=== PATIENT | female | born 1950 | race Caucasian/White ===

== ENCOUNTER 2021-12-23 15:16 | Emergency (ER) | payer MEDICARE, OTHER, SELFPAY ==
[2021-12-23 15:40] VITALS: BP 105/48; PULSE 65; RESP 14; TEMP 36.7; O2SAT 98
--- NOTE | 2021-12-23 16:37 | ED.GENADULT ---
HPI - General Adult General Date Seen: 12/23/21 Chief complaint: Extremity Pain/Injury, Lower Stated complaint: Toe Infection Time Seen by Provider: 12/23/21 15:28 Source: family History of Present Illness HPI narrative: Patient is a 71-year-old woman with significant dementia, here with her who provides history. He wanted to have her toes checked. He himself lives 5 hours away in [facility], he is visiting today. He says he has been hearing for the past couple of weeks about possible infection in her toes. He is just seeing it today, he is a little frustrated because he had asked staff at [facility] to have it evaluated and that has not happened yet. Patient herself is not able to provide any history. It has not seemed to bother her. There is a blackened area around her right great toenail, and a little less so around her left great toenail. She does have fungal infection in those toenails. There is no redness or swelling. She has not been febrile or otherwise ill. Related Data Home Medications Medication Instructions Recorded Confirmed acetaminophen 500 mg tablet mg 12/23/21 cyanocobalamin (vitamin B-12) 1,000 mcg PO DAILY 12/23/21 12/23/21 1,000 mcg tablet (Vitamin B-12) divalproex 125 mg capsule,delayed mg PO 12/23/21 release sprinkle (Depakote Sprinkles) hydrocodone 5 mg-acetaminophen 325 tab 12/23/21 mg tablet memantine 5 mg tablet mg 12/23/21 nystatin 100,000 unit/gram topical 1 applic TOPICAL PRN 12/23/21 12/23/21 powder (Nystop) quetiapine 50 mg tablet mg 12/23/21 sennosides 8.6 mg tablet (senna) mg 12/23/21 sertraline 50 mg tablet 50 mg PO DAILY 12/23/21 12/23/21 Allergies Allergy/AdvReac Type Severity Reaction Status Date / Time donepezil Allergy Mild Uncoded 12/23/21 16:26 Review of Systems Status of ROS: Reports: unobtainable due to medical condition (Dementia) [facility] Medical History Abnormal weight loss Anxiety Candidiasis Constipation Heartburn Insomnia Iron deficiency anemia Lewy body dementia Multiple sclerosis Urinary tract infection Social History Smoking Status: Never smoker How often do you have a drink containing alcohol: never AUDIT-C Alcohol total score: 0 Non-prescribed substance use: denies use Exam Narrative: Exam Narrative: Vital signs as below. In general, an alert, well-appearing elderly woman. Extremities: Examination of both feet shows significant uncle mycosis particularly in the great toenails. Under the right great toenail she has a subungual hematoma, where it appears that the toenail is starting to lift from the nail bed. This is probably starting to happen on the left as well although it is less dramatic. There is no evidence of bacterial infection, there is no redness, swelling or tenderness. No paronychium. Feet are otherwise normal in appearance. Pulses are intact. Neurologic: Patient is alert, speech is nonsensical but fluent. Moves all extremities. Const: Vital Signs, click to edit/add: Vital Signs - 24 hr 12/23/21 15:40 Temperature 98.1 F Pulse Rate [Pulse Oximeter] 65 Respiratory Rate 14 Blood Pressure [Le ft Upper Arm] 105/48 L Pulse Oximetry 98 Documenting provider has reviewed patient's vital signs: yes Course Course Hospital Course: Reviewed with her that I do not see any evidence of significant infection here aside from her uncle mycosis. She just has such significant fungal infection in the nails that they are starting to lift off the nail bed. I think she would do best to just leave this as is, I think the nails will continue to lift off of the nail bed and eventually will fall off. Did place a dressing on the right nail to protect it so that it does not tear off inadvertently. Also, I vast nursing staff to change this dressing daily, which will ensure that this is checked daily. Her is very concerned that they will not keep an eye on it, and this will help make sure that somebody is an eye on it. If there are any signs of overt infection that develop, such as redness, swelling, or if she seems to be having pain, she should be seen again. We talked about treatment for the onchomycosis, but he agrees that since this would be primarily cosmetic, that it probably is not indicated. Vital Signs Vital signs: Initial Vital Signs Temperature 98.1 F 12/23/21 15:40 Temperature Source Temporal Artery Scan 12/23/21 15:40 Pulse Rate 65 12/23/21 15:40 Respiratory Rate 14 12/23/21 15:40 Blood Pressure 105/48 L 12/23/21 15:40 Blood Pressure Mean 67 12/23/21 15:40 Blood Pressure Position Supine 12/23/21 15:40 Pulse Oximetry 98 12/23/21 15:40 Oxygen Delivery Method 12/23/21 15:40 Vital Signs Temperature 98.1 F 12/23/21 15:40 Pulse Rate 65 12/23/21 15:40 Respiratory Rate 14 12/23/21 15:40 Blood Pressure 105/48 L 12/23/21 15:40 Pulse Oximetry 98 12/23/21 15:40 Temperature 98.1 F 12/23/21 15:40 Pulse Rate 65 12/23/21 15:40 Respiratory Rate 14 12/23/21 15:40 Blood Pressure 105/48 L 12/23/21 15:40 Pulse Oximetry 98 12/23/21 15:40 Discharge Plan Discharge Clinical Impression: Onychomycosis Patient Disposition: [facility] Discharge Location: [facility] Living Condition: Stable Additional Instructions: Daily dressing changes on right great toe until nail falls off, then for about a week until nail that heals. Primary care or Podiatry follow-up as needed. Return if signs of infection develop such as redness, swelling, pain or fever. Prescriptions: No Action sennosides [senna] 8.6 mg tablet 0RF Label Comments: 1 tab po bid and 1 tab po bid prn constipation hydrocodone-acetaminophen 5-325 mg tablet 0RF Label Comments: TAKE ONE-HALF (1/2) TABLET BY MOUTH THREE TIMES DAILY;TAKE ONE-HALF (1/2) TABLET BY MOUTH EVERY 4 HOURS NEEDED FOR PAIN acetaminophen 500 mg tablet 0RF Label Comments: 1000 mg po BID divalproex [Depakote Sprinkles] 125 mg capsule, delayed rel sprinkle PO 0RF Label Comments: 250 mg po AM, 500 mg po noon, 250 mg po PM memantine 5 mg tablet 0RF Label Comments: Take 1 tablet by mouth once a day 5 mg po daily X 1 month, then DC. quetiapine 50 mg tablet 0RF Label Comments: 0.5 tab QAM, 1 tab midday and PM (3 doses daily 25-50-50 mg) AND Give 1 tablet (50mg) PRN daily for agitation nystatin [Nystop] 100,000 unit/gram powder 1 applic topical PRN 0RF sertraline 50 mg tablet 50 mg PO DAILY 0RF cyanocobalamin (vitamin B-12) [Vitamin B-12] 1,000 mcg tablet 1,000 mcg PO DAILY 0RF Stand Alone Forms: [employer] Info Instructions
== END 2021-12-23 17:01 | disposition home or self-care (01) ==
LOC: ED 16:38
PROVIDERS: Emergency Provider Emergency Medicine
DX: B35.1 Tinea unguium (principal); F03.90 Unspecified dementia, unspecified severity, without behavioral disturbance, psychotic disturbance, mood disturbance, and anxiety
CPT/HCPCS: 99282; 99283

== ENCOUNTER 2022-03-11 16:07 | Outpatient (CLI) | payer MEDICARE, OTHER, SELFPAY | END 2022-03-11 16:08 | disposition home or self-care (01) | PROVIDERS: Visit Provider Emergency Medicine | DX: S09.90XA Unspecified injury of head, initial encounter (principal); W01.0XXA Fall on same level from slipping, tripping and stumbling without subsequent striking against object, initial encounter; Y92.098 Other place in other non-institutional residence as the place of occurrence of the external cause | CPT/HCPCS: A0425; A0428; A0429 ==

== ENCOUNTER 2022-03-11 16:19 | Emergency (ER) | payer MEDICARE, OTHER, SELFPAY ==
[2022-03-11 16:26] VITALS: BP 132/67; PULSE 58; RESP 16; TEMP 36.5; O2SAT 97
--- NOTE | 2022-03-11 17:00 | CRLHL7_ITS ---
For Patients: As a result of the Century Cures Act, medical imaging exams and procedure reports are released immediately into your electronic medical record. You may view this report before your referring provider. If you have questions, please contact your health care provider. Indication: Fall Technique: Noncontrast head CT Comparison: No comparison Findings: Generalized parenchymal volume. Periventricular hypo lucencies likely reflecting chronic small vessel ischemic change no acute intracranial hemorrhage or mass. No acute extra-axial air fluid collections. No midline shift. Right frontal scalp hematoma. Skull and scalp otherwise appear unremarkable. Impression: No acute intracranial hemorrhage or mass. Right frontal scalp hematoma. Please note that all CT scans at this facility use dose modulation, iterative reconstruction, and/or weight-based dosing when appropriate to reduce radiation dose to as low as reasonably achievable. Dictated by Abbie Varela MD @ 03/11/2022 6:02:31 PM (Electronically Signed)
--- NOTE | 2022-03-11 17:02 | ED.FALL ---
HPI - Fall General Chief Complaint: Fall/Minor Trauma Stated Complaint: Fall Time Seen by Provider: 03/11/22 16:57 History of Present Illness HPI Narrative: This 71-year-old female is a resident in the memory care unit at [facility]. She was found down this morning with an unwitnessed apparent fall. There was no sign of injury. She again fell this afternoon. This 1 was witnessed. She did hit her head but did not have loss of consciousness. She is not on blood thinners. She does have a hematoma with bruising but no compromise of the skin in the area of her forehead just above the right eye brow. She does not have any neurologic deficits. Related Data Home Medications Medication Instructions Recorded Confirmed acetaminophen 500 mg tablet mg 12/23/21 cyanocobalamin (vitamin B-12) 1,000 mcg PO DAILY 12/23/21 03/11/22 1,000 mcg tablet (Vitamin B-12) divalproex 125 mg capsule,delayed mg PO 12/23/21 release sprinkle (Depakote Sprinkles) hydrocodone 5 mg-acetaminophen 325 tab 12/23/21 mg tablet memantine 5 mg tablet mg 12/23/21 nystatin 100,000 unit/gram topical 1 applic topical PRN 12/23/21 03/11/22 powder (Nystop) quetiapine 50 mg tablet mg 12/23/21 sennosides 8.6 mg tablet (senna) mg 12/23/21 sertraline 50 mg tablet 50 mg PO DAILY 12/23/21 03/11/22 melatonin PO 03/11/22 quetiapine 25 mg tablet mg 03/11/22 sennosides 8.6 mg capsule (senna) 8.6 mg PO BID 03/11/22 03/11/22 Allergies Allergy/AdvReac Type Severity Reaction Status Date / Time donepezil Allergy Mild Uncoded 12/23/21 16:26 Review of Systems Status of ROS: Reports: 10 or more systems reviewed and unremarkable except as noted in History and below Narrative: Unable to obtain due to dementia. [facility] Medical History Abnormal weight loss Anxiety Candidiasis Constipation Heartburn Insomnia Iron deficiency anemia Lewy body dementia Multiple sclerosis Urinary tract infection Social History Smoking Status: Never smoker How often do you have a drink containing alcohol: never AUDIT-C Alcohol total score: 0 Non-prescribed substance use: denies use Exam Narrative: Exam Narrative: Constitutional: Well-developed, well-nourished, no acute distress. HEENT: Hematoma above the right eyebrow about 4 cm in diameter with bruising but no skin compromise. Neck: Normal range of motion. Nontender. Supple. Heart: Regular. No murmurs. Normal rate. Intact distal pulses. Lungs: Clear to auscultation. No chest discomfort. No wheezes, rhonchi, or rales. Abdomen: Normal bowel sounds. Nontender. No rebound tenderness. Genitalia: Deferred. Back: No midline tenderness. Normal range of motion. Extremities: Normal range of motion. No injury. Skin: Intact. No rash. Warm. No erythema or pallor. Neurologic: No altered sensation. No weakness. Alert. Psychiatric: Dementia. Nursing notes and vitals signs are reviewed. Const: Vital Signs, click to edit/add: Vital Signs - 24 hr 03/11/22 16:26 Temperature 97.7 F Pulse Rate [Pulse Oximeter] 58 L Respiratory Rate 16 Blood Pressure [Ri ght Upper Arm] 132/67 Pulse Oximetry 97 Oxygen Delivery Me thod Room Air Course Vital Signs Vital signs: Initial Vital Signs Temperature 97.7 F 03/11/22 16:26 Temperature Source Temporal Artery Scan 03/11/22 16:26 Pulse Rate 58 L 03/11/22 16:26 Respiratory Rate 16 03/11/22 16:26 Blood Pressure 132/67 03/11/22 16:26 Blood Pressure Mean 88 03/11/22 16:26 Blood Pressure Position Supine 03/11/22 16:26 Pulse Oximetry 97 03/11/22 16:26 Oxygen Delivery Method 03/11/22 16:26 Vital Signs Temperature 97.7 F 03/11/22 16:26 Pulse Rate 58 L 03/11/22 16:26 Respiratory Rate 16 03/11/22 16:26 Blood Pressure 132/67 03/11/22 16:26 Pulse Oximetry 97 03/11/22 16:26 Oxygen Delivery Method 03/11/22 16:26 Temperature 97.7 F 03/11/22 16:26 Pulse Rate 58 L 03/11/22 16:26 Respiratory Rate 16 03/11/22 16:26 Blood Pressure 132/67 03/11/22 16:26 Pulse Oximetry 97 03/11/22 16:26 Oxygen Delivery Method 03/11/22 16:26 MDM - Fall MDM Narrative Medical decision making narrative: This patient comes in for evaluation of a fall that occurred at her memory care facility. This was a witnessed fall where she did not lose consciousness. She did hit her head and has a hematoma above her right eyebrow. CT imaging of the head by my review and according to radiology report shows no sign of intracranial injury. Patient is not exhibiting any signs of acute distress and is not showing any neurologic deficits. She is okay to return home to continue current plans. Imaging Data CT scan - head: Radiologist's impression: No acute intracranial hemorrhage or mass. Right frontal scalp hematoma. Discharge Plan Discharge Clinical Impression: Traumatic hematoma of forehead Patient Disposition: Home w/ Parent or Adult Condition: Stable Additional Instructions: Continue current plans. Follow up with MD or return if worsening. Prescriptions: No Action sennosides [senna] 8.6 mg tablet Label Comments: 1 tab po bid and 1 tab po bid prn constipation hydrocodone-acetaminophen 5-325 mg tablet Label Comments: TAKE ONE-HALF (1/2) TABLET BY MOUTH THREE TIMES DAILY;TAKE ONE-HALF (1/2) TABLET BY MOUTH EVERY 4 HOURS NEEDED FOR PAIN acetaminophen 500 mg tablet Label Comments: 1000 mg po BID divalproex [Depakote Sprinkles] 125 mg capsule, delayed rel sprinkle PO Label Comments: 250 mg po AM, 500 mg po noon, 250 mg po PM memantine 5 mg tablet Label Comments: Take 1 tablet by mouth once a day 5 mg po daily X 1 month, then DC. quetiapine 50 mg tablet Label Comments: 0.5 tab QAM, 1 tab midday and PM (3 doses daily 25-50-50 mg) AND Give 1 tablet (50mg) PRN daily for agitation nystatin [Nystop] 100,000 unit/gram powder 1 applic topical PRN sertraline 50 mg tablet 50 mg PO DAILY cyanocobalamin (vitamin B-12) [Vitamin B-12] 1,000 mcg tablet 1,000 mcg PO DAILY quetiapine 25 mg tablet Label Comments: TAKE 1 TABLET BY MOUTH EVERY MORNING melatonin PO senna 8.6 mg capsule 8.6 mg PO BID Follow Up/Referrals: Provider,Not a Local [Primary Care Provider] - Stand Alone Forms: [employer] Info Instructions
[2022-03-11] MEDS: LORazepam 2 MG/ML inj 0.5 MG IM (18:47)
== END 2022-03-11 19:26 | disposition home or self-care (01) ==
PROVIDERS: Emergency Provider Emergency Medicine Emergency Medical Services
DX: S00.83XA Contusion of other part of head, initial encounter (principal)
CPT/HCPCS: 70450; 99284; J2060

== ENCOUNTER 2022-03-11 18:48 | Outpatient (CLI) | payer MEDICARE, OTHER, SELFPAY | END 2022-03-11 18:49 | disposition home or self-care (01) | PROVIDERS: Visit Provider Emergency Medicine Emergency Medical Services | DX: R41.0 Disorientation, unspecified (principal) | CPT/HCPCS: A0425; A0428 ==

== ENCOUNTER 2022-03-12 07:16 | Outpatient (CLI) | payer MEDICARE, OTHER, SELFPAY | END 2022-03-12 07:17 | disposition home or self-care (01) | LOC: AMB 03-22 08:47 | PROVIDERS: Visit Provider Family Medicine | DX: S79.911A Unspecified injury of right hip, initial encounter (principal); F03.90 Unspecified dementia, unspecified severity, without behavioral disturbance, psychotic disturbance, mood disturbance, and anxiety; W06.XXXA Fall from bed, initial encounter; Z91.81 History of falling; Y92.122 Bedroom in nursing home as the place of occurrence of the external cause | CPT/HCPCS: A0425; A0427 ==

== ENCOUNTER 2022-03-12 07:43 | Inpatient (IN) | payer MEDICARE, OTHER, SELFPAY ==
[2022-03-12] VITALS (29 sets, daily range): BP systolic 61–160; BP diastolic 48–106; PULSE 63–75; RESP 12–18; TEMP 36.6–37.3; O2SAT 86–100; BMI 19.1
--- NOTE | 2022-03-12 | CRLHL7_ITS ---
For Patients: As a result of the Cures Act, medical imaging exams and procedure reports are released immediately into your electronic medical record. You may view this report before your referring provider. If you have questions, please contact your health care provider. INDICATION: Fall, chest pain TECHNIQUE: Chest 1 view. COMPARISON: None FINDINGS: The heart is normal in size. The pulmonary vasculature is within normal limits. The lungs clear. No pneumothorax is visualized, however evaluation for small pneumothorax is limited as the patient is supine. A small portion of the lateral right ribs is excluded from image. IMPRESSION: No acute process within the limits of this exam. Dictated by Eusebia White MD @ 03/12/2022 10:18:47 AM Dictated by: Eusebia White MD @ 03/12/2022 10:19:07 (Electronically Signed)
--- NOTE | 2022-03-12 08:32 | CRLHL7_ITS ---
For Patients: As a result of the Cures Act, medical imaging exams and procedure reports are released immediately into your electronic medical record. You may view this report before your referring provider. If you have questions, please contact your health care provider. INDICATION: History of dementia; patient fell. Comparison: None. TECHNIQUE: CT cervical spine without intravenous contrast ; Coronal and sagittal reformats. FINDINGS: The quality if the study is significantly degraded secondary to motion artifact. No gross pathology identified. No obvious acute fracture or dislocation. C1-C2 articulation is unremarkable. Disc space narrowing and disc degeneration at C3-4 C4-5. The lung apices are unremarkable. IMPRESSION: 1. Significant motion artifact degrading the quality of the study. 2. No gross pathology identified. Please note that all CT scans at this facility use dose modulation, iterative reconstruction, and/or weight-based dosing when appropriate to reduce radiation dose to as low as reasonably achievable. Dictated by Agatha Son MD @ 03/12/2022 11:11:49 AM (Electronically Signed)
--- NOTE | 2022-03-12 08:32 | CRLHL7_ITS ---
For Patients: As a result of the Cures Act, medical imaging exams and procedure reports are released immediately into your electronic medical record. You may view this report before your referring provider. If you have questions, please contact your health care provider. INDICATION: Fall, bilateral hip plain TECHNIQUE: X-ray bilateral hips, two views and a single view of the pelvis. COMPARISON: None FINDINGS: There is a minimally displaced intertrochanteric fracture of the right femur. The lesser trochanter is displaced approximately 0.9 cm medially. Femoral heads are well formed and well seated. No left hip fracture. IMPRESSION: Minimally displaced intertrochanteric fracture of the right femur Dictated by Eusebia White MD @ 03/12/2022 10:11:57 AM Dictated by: Eusebia White MD @ 03/12/2022 10:12:02 (Electronically Signed)
--- NOTE | 2022-03-12 08:32 | CRLHL7_ITS ---
For Patients: As a result of the Century Cures Act, medical imaging exams and procedure reports are released immediately into your electronic medical record. You may view this report before your referring provider. If you have questions, please contact your health care provider. INDICATION: Dementia; patient fell. COMPARISON: CT head without intravenous contrast March 11, 2022. Technique: CT head without intravenous contrast; coronal and sagittal reformats. FINDINGS: Small hematoma right frontal scalp. No intracranial hemorrhage. No mass lesions or shift of the midline structures. brain atrophy. Periventricular low densities secondary to small vessel disease. The calvarium is unremarkable. No interval change. IMPRESSION: 1. No intracranial hemorrhage. 2. No mass lesions or shift of the midline structures. 3. Brain atrophy. 4. Evidence of small vessel disease. Please note that all CT scans at this facility use dose modulation, iterative reconstruction, and/or weight-based dosing when appropriate to reduce radiation dose to as low as reasonably achievable. Dictated by Agatha Son MD @ 03/12/2022 11:17:05 AM (Electronically Signed)
--- NOTE | 2022-03-12 08:32 | ED_ITS ---
HPI - Fall General Time Seen by Provider: 08:32 Date Seen: 03/12/22 Chief Complaint: Hip Injury/Pain Stated Complaint: Fall Time Seen by Provider: 03/12/22 08:26 Source: EMS, RN notes reviewed and old records reviewed Mode of arrival: EMS Limitations: altered mental status History of Present Illness HPI Narrative: Allie Montoya as she is known is a 71-year-old female currently a resident at [facility] [place]Note 2] who is brought to the emergency room this morning by EMS for evaluation of fall and complaints of right hip pain. Patient had been seen in the [facility] emergency room yesterday after a fall and hitting her head. Head CT was negative and she was discharged back to [facility]. This morning at approximately 0100 hours patient was her yelling and patient was noted to be on the floor of her room. She had complaints of right hip pain, blood on her lip and a rug burn to her right knee. She was given medication for discomfort at that time. However, the pain continued and it was decided to transfer her here to the emergency room early this morning. EMS did give patient fentanyl and route to the hospital. Upon arrival patient is unable to give a comprehensive history. She initially says yes to all of my questions but I do not feel that these are meaningful answers. She is clearly in discomfort especially with movement of her right leg. complaint: fall Onset (ago): hour(s) Fall from: standing Fall witnessed: no Place fall occurred: [facility] Prolonged down time: no Related Data Home Medications Medication Instructions Recorded Confirmed acetaminophen 500 mg tablet 1,000 mg PO BID 12/23/21 03/12/22 cyanocobalamin (vitamin B-12) 1,000 mcg PO DAILY 12/23/21 03/12/22 1,000 mcg tablet (Vitamin B-12) divalproex 125 mg capsule,delayed 250 - 500 mg PO TID 12/23/21 03/12/22 release sprinkle (Depakote Sprinkles) hydrocodone 5 mg-acetaminophen 325 0.5 tab PO TID 12/23/21 03/12/22 mg tablet memantine 5 mg tablet mg 12/23/21 nystatin 100,000 unit/gram topical 1 applic topical PRN 12/23/21 03/12/22 powder (Nystop) quetiapine 50 mg tablet mg 12/23/21 sennosides 8.6 mg tablet (senna) 8.6 mg PO PRN 12/23/21 sertraline 50 mg tablet 50 mg PO DAILY 12/23/21 03/12/22 melatonin 5 mg PO HS 03/11/22 03/12/22 quetiapine 25 mg tablet 25 - 50 mg PO BID 03/11/22 03/12/22 sennosides 8.6 mg capsule (senna) 8.6 mg PO BID 03/11/22 03/12/22 Allergies Allergy/AdvReac Type Severity Reaction Status Date / Time donepezil Allergy Unknown Uncoded 03/12/22 07:59 Review of Systems Status of ROS: Reports: unobtainable due to mental status [facility] Medical History (Updated 03/12/22 @ 10:40 by Franc Sandoval MD) Abnormal weight loss Anxiety Candidiasis Constipation Heartburn Insomnia Iron deficiency anemia Lewy body dementia Multiple sclerosis Urinary tract infection Social History (Updated 03/12/22 @ 10:35 by Franc Sandoval MD) Narrative: Patient is . Lives at [facility]. Recent falls as noted. Code status is DNR DNI. Smoking Status: Never smoker Do you use any of these nicotine containing products: None Second hand tobacco smoke exposure: No How often do you have a drink containing alcohol: never AUDIT-C Alcohol total score: 0 Non-prescribed substance use: denies use Exam Const: Vital Signs, click to edit/add: Vital Signs - 24 hr 03/12/22 07:59 03/12/22 08:51 03/12/22 09:21 Temperature 98.1 F Pulse Rate 65 Pulse Rate [Pulse Oximeter] 68 Respiratory Rate 14 Blood Pressure Blood Pressure [Le ft Upper Arm] 106/68 Pulse Oximetry 96 96 99 Oxygen Delivery Me thod Room Air 03/12/22 09:30 03/12/22 09:31 03/12/22 08:00 Temperature Pulse Rate 70 69 Pulse Rate [Pulse Oximeter] Respiratory Rate Blood Pressure 118/60 Blood Pressure [Le ft Upper Arm] 132/71 Pulse Oximetry 94 98 Oxygen Delivery Me thod 03/12/22 08:30 03/12/22 09:00 03/12/22 09:30 Temperature Pulse Rate Pulse Rate [Pulse Oximeter] Respiratory Rate Blood Pressure Blood Pressure [Le ft Upper Arm] 126/83 91/57 L 118/60 Pulse Oximetry Oxygen Delivery Me thod Documenting provider has reviewed patient's vital signs: yes Exam limitations: altered mental status General appearance: comfortable (Initially with increasing discomfort noted during stay.), well kempt and frail appearing Orientation/consciousness: Yes awake Other: Patient will look at me hold my hand is able to make sentences but they are not congruent with the questions that I ask. HENMT: Other: Large ecchymotic hematoma noted over the anterior 0 temporal/lateral orbital area on the right. Eye: Common normals: PERRL and EOMs intact bilaterally General eye: normal appearance of both eyes Pupil: PERRL Neck & C-Spine: Common normals: full ROM and supple Chest: Common normals: inspection of chest normal Resp: Common normals: normal respiratory effort and clear to auscultation bilaterally Effort & inspection: able to speak in complete sentences Auscultation: clear to auscultation bilaterally Cardio: Common normals: regular rate and regular rhythm Rate: regular rate Rhythm: regular rhythm GI: Common normals: soft to palpation and non-tender Palpation: soft Extremity: Other: Patient noted to have an externally rotated shortened right lower leg. Any movement increases patient's pain. She has superficial abrasion on her right knee. Movement of her left leg also increases patient pain. Although I cannot pinpoint location of that discomfort. Neuro: Sensorium/orientation: awake Psych: Appearance: well kempt Attitude: agitated Activity/motor behavior: appropriate eye contact and restless Speech: incoherent Thought process: confabulating Insight: poor Judgement: poor Skin: Narrative: Superficial dime-sized abrasion on the right knee. Course Course Hospital Course: At this time patient clearly is at high suspicion for right hip fracture. Will order x-rays of the pelvis bilateral hips and chest x-ray. Given patient's behavior today and unknown baseline status will also obtain CTs of the head and neck. EKG, troponin, CBC, comprehensive panel, urinalysis, CRP also ordered. Reevaluation(s) Reevaluation #1: Patient noted to have increasing discomfort and agitation post x-rays. She is given an fentanyl 25 mg with Zofran 4 mg. Ativan 0.25 mg will be given. I do think this will help her with her discomfort. Reevaluation #2: I had the pleasure of speaking to Allie's son Audie. I was unable to make contact with patient's son Alexei. Patient's dementia is baseline. Coags describes 3-4 years of his mom having severe dementia. She does have some verbalization but unable to answer questions. It appears that patient did have a small amount of applesauce or pudding with her medications this morning at 0600 hours. Reevaluation #3: I had the pleasure of speaking to Allie's Adam. He is and route from [place] back to [place]. He does wish to proceed with surgical repair of his 's hip fracture. He would like medications to be given for infection, pain control but if patient is in a code situation he would like her to be DNR/DNI. He notes that this is part of their will and previous discussions. Consultations Consultation #1: SHERWIN Cmoer from Orthopedics. Vital Signs Vital signs: Initial Vital Signs Temperature 98.1 F 03/12/22 07:59 Temperature Source Temporal Artery Scan 03/12/22 07:59 Pulse Rate 68 03/12/22 07:59 Respiratory Rate 14 03/12/22 07:59 Blood Pressure 106/68 03/12/22 07:59 Blood Pressure Mean 80 03/12/22 07:59 Blood Pressure Position Supine 03/12/22 07:59 Pulse Oximetry 96 03/12/22 07:59 Oxygen Delivery Method 03/12/22 07:59 Vital Signs Temperature 98.1 F 03/12/22 07:59 Pulse Rate 68 03/12/22 07:59 Respiratory Rate 14 03/12/22 07:59 Blood Pressure 106/68 03/12/22 07:59 Pulse Oximetry 96 03/12/22 07:59 Oxygen Delivery Method 03/12/22 07:59 Temperature 98.1 F 03/12/22 07:59 Pulse Rate 69 03/12/22 09:31 Respiratory Rate 14 03/12/22 07:59 Blood Pressure 118/60 03/12/22 09:31 Pulse Oximetry 98 03/12/22 09:31 Oxygen Delivery Method 03/12/22 07:59 MDM - Fall MDM Narrative Medical decision making narrative: 1. Right hip fracture-patient will need surgical correction. Patient last ate at 0100 hours but did have a small amount of applesauce or pudding with her meds at 0600 hours. Orthopedics aware potential surgical case today. 2. Head injury-no evidence of intracranial bleed or skull fracture. Cervical spine without injury. 3. Altered mentation-this appears to be at baseline after speaking with her son Audie. I have also spoken to patient's Jarvis. 4. Disposition-admission to hospital under the care of Dr. Sandoval. Orthopedic PA Souleymane informed of patient admission. Medical Records Attestation: I reviewed the patient's medical records. Lab Data Attestation: I reviewed the patient's lab results. Labs: Lab Results 03/12/22 03/12/22 03/12/22 Range/Units 08:47 08:47 08:47 WBC 10.08 (4.50-11.00) K/uL RBC 3.91 L (4.00-5.20) m/uL Hgb 12.5 (12.0-16.0) gm/dL Hct 38.2 (33.0-51.0) % MCV 98 (80-100) fL MCH 32 (26-34) pg MCHC 33 (32-36) gm/dL RDW Coeff of Galo 12.7 (11.5-15.5) % Plt Count 205 (140-440) K/uL Neut % (Auto) 82.0 H (42.0-72.0) % Lymph % (Auto) 9.5 L (20-44) % Amite % (Auto) 7.8 (0.0-11.0) % Eos % (Auto) 0.1 (0.0-7.0) % Baso % (Auto) 0.2 (0.0-3.0) % Neut # (Auto) 8.30 H (1.7-7.0) K/uL Lymph # (Auto) 1.00 (0.90-2.90) K/uL Amite # (Auto) 0.80 (0.00-0.90) K/UL Eos # (Auto) 0.01 (0.00-0.50) K/uL Baso # (Auto) 0.02 (0.00-0.30) K/uL Abs Immat Gran (auto) 0.04 (0.00-0.30) K/uL Sodium 140 (135-149) mmol/L Potassium 3.9 (3.6-5.1) mmol/L Chloride 108 (96-114) mmol/L Carbon Dioxide 24 (20-32) mmol/L BUN 24 (7-30) mg/dL Creatinine 0.4 L (0.5-1.5) mg/dL Estimated Creat Clear 41.88 Estimated GFR 105 ml/min Glucose 136 H (60-115) mg/dL Lactate 1.0 (0.5-1.9) mmol/L Calcium 8.6 (8.4-10.6) mg/dL Total Bilirubin 0.3 (0.1-1.5) mg/dL AST 21 (12-35) U/L ALT 13 (4-35) U/L Alkaline Phosphatase 62 (40-150) U/L Troponin I < 0.01 L (0.01-0.04) ng/mL C-Reactive Protein 0.5 (0.5-1.0) mg/dL Total Protein 6.5 (6.0-8.3) g/dL Albumin 4.0 (3.3-5.0) g/dL SARS-CoV-2 (PCR) (Negative) Influenza Type A (PCR) (Negative) Influenza Type B (PCR) (Negative) 03/12/22 Range/Units 09:35 WBC (4.50-11.00) K/uL RBC (4.00-5.20) m/uL Hgb (12.0-16.0) gm/dL Hct (33.0-51.0) % MCV (80-100) fL MCH (26-34) pg MCHC (32-36) gm/dL RDW Coeff of Galo (11.5-15.5) % Plt Count (140-440) K/uL Neut % (Auto) (42.0-72.0) % Lymph % (Auto) (20-44) % Amite % (Auto) (0.0-11.0) % Eos % (Auto) (0.0-7.0) % Baso % (Auto) (0.0-3.0) % Neut # (Auto) (1.7-7.0) K/uL Lymph # (Auto) (0.90-2.90) K/uL Amite # (Auto) (0.00-0.90) K/UL Eos # (Auto) (0.00-0.50) K/uL Baso # (Auto) (0.00-0.30) K/uL Abs Immat Gran (auto) (0.00-0.30) K/uL Sodium (135-149) mmol/L Potassium (3.6-5.1) mmol/L Chloride (96-114) mmol/L Carbon Dioxide (20-32) mmol/L BUN (7-30) mg/dL Creatinine (0.5-1.5) mg/dL Estimated Creat Clear Estimated GFR ml/min Glucose (60-115) mg/dL Lactate (0.5-1.9) mmol/L Calcium (8.4-10.6) mg/dL Total Bilirubin (0.1-1.5) mg/dL AST (12-35) U/L ALT (4-35) U/L Alkaline Phosphatase (40-150) U/L Troponin I (0.01-0.04) ng/mL C-Reactive Protein (0.5-1.0) mg/dL Total Protein (6.0-8.3) g/dL Albumin (3.3-5.0) g/dL SARS-CoV-2 (PCR) Negative SARS-CoV-2 (Negative) Influenza Type A (PCR) Negative PCR FLU A (Negative) Influenza Type B (PCR) Negative PCR FLU B (Negative) Imaging Data CT scan - head: Attestation: I have reviewed the pertinent imaging results. My impression: Significant loss of volume but no acute bleed Radiologist's impression: ?No intracranial hemorrhage. 2. No mass lesions or shift of the midline structures. 3. Brain atrophy. 4. Evidence of small vessel disease. Cervical spine CT: Attestation: I have reviewed the pertinent imaging results. My impression: Exaggerated lordosis. No acute fractures Radiologist's impression: Significant motion artifact degrading the quality of the study. 2. No gross pathology identified. Chest x-ray: Attestation: I have reviewed the pertinent imaging results. My impression: Increased lung markings thought to be chronic in nature. Radiologist's impression: The heart is normal in size. The pulmonary vasculature is within normal limits. The lungs clear. No pneumothorax is visualized, however evaluation for small pneumothorax is limited as the patient is supine. A small portion of the lateral right ribs is excluded from image. IMPRESSION: No acute process within the limits of this exam. Bilateral hip x-rays with pelvis: Attestation: I have reviewed the pertinent imaging results. My impression: Right hip fracture no evidence of pelvic fracture Radiologist's impression: There is a minimally displaced intertrochanteric fracture of the right femur. The lesser trochanter is displaced approximately 0.9 cm medially. Femoral heads are well formed and well seated. No left hip fracture. Right knee x-ray: Attestation: I have reviewed the pertinent imaging results. My impression: No acute fracture Radiologist's impression: Limited examination due to positioning and artifact external to the patient which may be a blanket. There is mild joint space narrowing of the medial lateral compartment. Moderate to severe joint space narrowing of the patellofemoral joint. No knee joint effusion. Subtle deformity of the proximal fibula appears chronic. Mild demineralization. No acute fracture is visualized. IMPRESSION: Subtle deformity of the proximal fibula appears chronic. Mild demineralization. No acute fracture is visualized. ECG Data Attestation: I personally reviewed and interpreted this ECG as follows: ECG interpretation date: 03/12/22 Interpretation: EKG by my read shows sinus rhythm at a rate of 68. I do not note any acute ST or T-wave changes.
--- NOTE | 2022-03-12 08:32 | CRLHL7_ITS ---
For Patients: As a result of the Cures Act, medical imaging exams and procedure reports are released immediately into your electronic medical record. You may view this report before your referring provider. If you have questions, please contact your health care provider. INDICATION: Fall, right knee pain TECHNIQUE: X-ray right knee, two views COMPARISON: None FINDINGS: Limited examination due to positioning and artifact external to the patient which may be a blanket. There is mild joint space narrowing of the medial lateral compartment. Moderate to severe joint space narrowing of the patellofemoral joint. No knee joint effusion. Subtle deformity of the proximal fibula appears chronic. Mild demineralization. No acute fracture is visualized. IMPRESSION: Subtle deformity of the proximal fibula appears chronic. Mild demineralization. No acute fracture is visualized. Dictated by Eusebia White MD @ 03/12/2022 10:15:14 AM Dictated by: Eusebia White MD @ 03/12/2022 10:15:59 (Electronically Signed)
--- NOTE | 2022-03-12 08:33 | CRLHL7_ITS ---
For Patients: As a result of the Century Cures Act, medical imaging exams and procedure reports are released immediately into your electronic medical record. You may view this report before your referring provider. If you have questions, please contact your health care provider. INDICATION: Fall. Hip fracture. TECHNIQUE: 56 mL Isovue-370 IV contrast. FINDINGS: Aorta non aneurysmal. No acute traumatic finding in the chest. Minor dependent atelectasis. Normal solid visceral enhancement. Benign cyst lateral left kidney a 3.6 cm. Large volume of formed stool through the redundant colon. Query acute on chronic constipation. No air or fluid in the peritoneum. Uterus is absent. Urinary bladder is normal. A right hip intertrochanteric fracture with surrounding soft tissue edema but no hematoma. Small right hip effusion. IMPRESSION: No traumatic finding of significance outside of the known acute right hip fracture. Clinical correlation recommended for constipation. Please note that all CT scans at this facility use dose modulation, iterative reconstruction, and/or weight-based dosing when appropriate to reduce radiation dose to as low as reasonably achievable. Dictated by Quoc Page MD @ 03/12/2022 12:19:23 PM (Electronically Signed)
[2022-03-12 08:58] LABS: Basophils Absolute Auto 0.02 K/uL (0.00-0.30); Basophils Percent Auto 0.2 % (0.0-3.0); Eosinophils Absolute Auto 0.01 K/uL (0.00-0.50); Eosinophils Percent Auto 0.1 % (0.0-7.0); Hematocrit 38.2 % (33.0-51.0); Hemoglobin* 12.5 gm/dL (12.0-16.0); Immature Granulocytes Abs Auto 0.04 K/uL (0.00-0.30); Lymphocytes Percent Auto 9.5 % (20-44); Mean Corpuscular HGB Conc 33 gm/dL (32-36); Mean Corpuscular Hemoglobin 32 pg (26-34); Mean Corpuscular Volume 98 fL (80-100); Monocytes Percent Auto 7.8 % (0.0-11.0); Platelet Count* 205 K/uL (140-440); RDW Coefficient of Variation % 12.7 % (11.5-15.5); Red Blood Count 3.91 m/uL (4.00-5.20); White Blood Count* 10.08 K/uL (4.50-11.00)
[2022-03-12 09:06] LABS: Slide Review Reflex No
[2022-03-12 09:09] LABS: Chloride* 108 mmol/L (96-114); Sodium* 140 mmol/L (135-149)
[2022-03-12 09:10] LABS: Potassium* 3.9 mmol/L (3.6-5.1)
[2022-03-12 09:12] LABS: Bilirubin Total* 0.3 mg/dL (0.1-1.5); Carbon Dioxide* 24 mmol/L (20-32); Creatinine* 0.4 mg/dL (0.5-1.5); Est. Creatinine Clearance* 41.88; Estimated Glomerular Filt Rate 105 ml/min
[2022-03-12 09:13] LABS: Alanine Aminotransferase* 13 U/L (4-35); Alkaline Phosphatase* 62 U/L (40-150); Aspartate Amino Transferase* 21 U/L (12-35); Blood Urea Nitrogen* 24 mg/dL (7-30); Calcium* 8.6 mg/dL (8.4-10.6); Glucose* 136 mg/dL (60-115); Total Protein* 6.5 g/dL (6.0-8.3)
[2022-03-12 09:16] LABS: C Reactive Protein* 0.5 mg/dL (0.5-1.0)
[2022-03-12 09:28] LABS: Troponin I* < 0.01 ng/mL (0.01-0.04)
[2022-03-12] MEDS: ONDANSETRON 2 MG/ML inj 4 MG IVP (09:54)
[2022-03-12] MEDS: fentaNYL 100 MCG/2 ML inj 25 MCG IVP (09:54)
[2022-03-12] MEDS: LORazepam 2 MG/ML inj 0.25 MG IVP (09:56)
[2022-03-12 10:17] LABS: PCR FLU A Negative PCR FLU A (Negative); PCR FLU B Negative PCR FLU B (Negative)
[2022-03-12 10:19] LABS: SARS PCR* Negative SARS-CoV-2 (Negative)
--- NOTE | 2022-03-12 10:30 | P.IMHP_ITS ---
Hospitalist- H&P: HPI History of Present Illness Time Seen by Provider: 10:30 Date Seen: 03/12/22 Chief complaint: Fall Narrative: Allie Rao is a 71 year old female with Lewy body dementia admitted through the emergency department after a fall at home. She lives in Memory Care at [facility]. Around 1:00 a.m. today she apparently fell. She was also seen in our emergency department yesterday after 2 falls with a head injury. No intracranial injury was identified yesterday. Today she has a right intertrochanteric hip fracture Patient has fairly severe dementia and is unable to communicate by verbal means and is also unable to follow simple instructions. Review of Systems Narrative: Unable to obtain due to dementia [facility] Medical History (Updated 03/12/22 @ 10:40 by Franc Sandoval MD) Abnormal weight loss Anxiety Candidiasis Constipation Heartburn Insomnia Iron deficiency anemia Lewy body dementia Multiple sclerosis Urinary tract infection Social History (Updated 03/12/22 @ 10:35 by Franc Sandoval MD) Narrative: Patient is . Lives at [facility]. Recent falls as noted. Code status is DNR DNI. Smoking Status: Never smoker Do you use any of these nicotine containing products: None Second hand tobacco smoke exposure: No How often do you have a drink containing alcohol: never AUDIT-C Alcohol total score: 0 Non-prescribed substance use: denies use Meds Home Medications and Allergies Home Medications Medication Instructions Recorded Confirmed Type acetaminophen 500 mg tablet 500 mg PO BID 12/23/21 03/12/22 History cyanocobalamin (vitamin B-12) 1,000 mcg PO DAILY 12/23/21 03/12/22 History 1,000 mcg tablet (Vitamin B-12) divalproex 125 mg capsule,delayed 250 - 500 mg PO TID 12/23/21 03/12/22 History release sprinkle (Depakote Sprinkles) hydrocodone 5 mg-acetaminophen 325 0.5 tab PO TID 12/23/21 03/12/22 History mg tablet memantine 5 mg tablet mg 12/23/21 History nystatin 100,000 unit/gram topical 1 applic topical PRN 12/23/21 03/12/22 History powder (Nystop) quetiapine 50 mg tablet mg 12/23/21 History sennosides 8.6 mg tablet (senna) 8.6 mg PO PRN 12/23/21 History sertraline 50 mg tablet 50 mg PO DAILY 12/23/21 03/12/22 History melatonin 5 mg PO HS 03/11/22 03/12/22 History quetiapine 25 mg tablet 25 - 50 mg PO BID 03/11/22 03/12/22 History sennosides 8.6 mg capsule (senna) 8.6 mg PO BID 03/11/22 03/12/22 History Allergies Allergy/AdvReac Type Severity Reaction Status Date / Time donepezil Allergy Unknown Uncoded 03/12/22 07:59 Exam Narrative: Exam Narrative: No rash. Const: Vital Signs, click to edit/add: Vital Signs - 24 hr 03/12/22 07:59 03/12/22 08:51 03/12/22 09:21 Temperature 98.1 F Pulse Rate 65 Pulse Rate [Pulse Oximeter] 68 Respiratory Rate 14 Blood Pressure Blood Pressure [Le ft Upper Arm] 106/68 Pulse Oximetry 96 96 99 Oxygen Delivery Me thod Room Air 03/12/22 09:30 03/12/22 09:31 Temperature Pulse Rate 70 69 Pulse Rate [Pulse Oximeter] Respiratory Rate Blood Pressure 118/60 Blood Pressure [Le ft Upper Arm] Pulse Oximetry 94 98 Oxygen Delivery Me thod Documenting provider has reviewed patient's vital signs: yes Hospitalist - H&P: Result Labs Labs: Short CBC 03/12/22 Range/Units 08:47 WBC 10.08 (4.50-11.00) K/uL Hgb 12.5 (12.0-16.0) gm/dL Hct 38.2 (33.0-51.0) % Plt Count 205 (140-440) K/uL BMP 03/12/22 08:47 Sodium 140 Potassium 3.9 Chloride 108 Carbon Dioxide 24 BUN 24 Creatinine 0.4 L Glucose 136 H Calcium 8.6 Cardiac Enzymes 03/12/22 Range/Units 08:47 Troponin I < 0.01 L (0.01-0.04) ng/mL Liver Function 03/12/22 Range/Units 08:47 Total Bilirubin 0.3 (0.1-1.5) mg/dL AST 21 (12-35) U/L ALT 13 (4-35) U/L Alkaline Phosphatase 62 (40-150) U/L Albumin 4.0 (3.3-5.0) g/dL Assessment and Plan Assessment and plan (1) Fracture, intertrochanteric, right femur: Problem comment: Proceed to surgery as soon as it can safely be done. Status: Acute (2) Frequent falls: Problem comment: High risk for falls. Status: Acute (3) Lewy body dementia: Problem comment: High risk for perioperative delirium. Status: Acute Plan Admit to the hospital for hip fracture surgery and postoperative care. Anticipate complicated postoperative course with delirium. Likely will need long term placement. Total time spent today is 60 minutes, 40 minutes in coordination of care and discussing with other
[2022-03-12 11:01] LABS: Appearance Urine Slightly Cloudy (Clear); Bilirubin Urine Negative (Negative); Blood Urine Negative (Negative); Color Urine Yellow (Yellow); Glucose Urine Negative (Negative); Ketones Urine 1+ (Negative); Leukocyte Esterase Urine Negative (Negative); Nitrite Urine Negative (Negative); Protein Urine Trace (Negative); Specific Gravity Urine 1.015 (1.000-1.030); pH Urine 8.5 (5.0-8.5)
[2022-03-12 11:12] LABS: Amorphous Sediment Urine Many; Bacteria Urine Moderate; RBC Urine 0-2 (0-2); Squamous Epithelial Cell Urine Few (None-Few)
[2022-03-12] MEDS: LACTATED RINGERS 1000 ML 1,000 ML 125 ML IV ×2 (11:27→18:50)
[2022-03-12] MEDS: MORPHINE 4 MG/ML INJ IVP ×2 (12:37→15:23)
--- NOTE | 2022-03-12 15:54 | PC.NURSE ---
End of Shift: Patient admitted to med/surg approx 1110. Unable to answer questions or state name and date. Bedrest and turn and reposition. Grasping at right hip and yelling out with movement. PRN Morphine given x2. Patient NPO. Bran patent.
[2022-03-12] MEDS: CEFAZOLIN 1 GM inj IVP ×2 (17:35→18:30)
--- NOTE | 2022-03-12 17:44 | PM.ORCN ---
History of Present Illness HPI Date Seen: 03/12/22 Chief complaint: Fall Narrative: Dr. Sandoval has requested orthopedic consultation for right hip fracture. Peg is a 71-year-old, community ambulator without assist. She has Lewy body dementia. She lives in the Memory Care Unit, next to the hospital. She had a fall yesterday and a fall today. Today she was diagnosed with an intertrochanteric fracture of her right hip. She has never injured this hip or had surgery previously on it. I spoke with her Adam by phone. Review of Systems Narrative: The patient's denies: Fever, night sweats, shaking chills, nausea, vomiting, diarrhea, chest pain, chest pressure, shortness of breath, no rash, no change in hearing or vision, no issues with bleeding or clotting [facility] Medical History (Updated 03/12/22 @ 10:40 by Franc Sandoval MD) Abnormal weight loss Anxiety Candidiasis Constipation Heartburn Insomnia Iron deficiency anemia Lewy body dementia Multiple sclerosis Urinary tract infection Social History (Updated 03/12/22 @ 10:35 by Franc Sandoval MD) Narrative: Patient is . Lives at [facility]. Recent falls as noted. Code status is DNR DNI. Smoking Status: Never smoker Do you use any of these nicotine containing products: None Second hand tobacco smoke exposure: No How often do you have a drink containing alcohol: never AUDIT-C Alcohol total score: 0 Non-prescribed substance use: denies use Meds Home Medications and Allergies Home Medications Medication Instructions Recorded Confirmed Type acetaminophen 500 mg tablet 1,000 mg PO BID 12/23/21 03/12/22 History cyanocobalamin (vitamin B-12) 1,000 mcg PO DAILY 12/23/21 03/12/22 History 1,000 mcg tablet (Vitamin B-12) divalproex 125 mg capsule,delayed 250 - 500 mg PO TID 12/23/21 03/12/22 History release sprinkle (Depakote Sprinkles) hydrocodone 5 mg-acetaminophen 325 0.5 tab PO TID 12/23/21 03/12/22 History mg tablet memantine 5 mg tablet mg 12/23/21 History nystatin 100,000 unit/gram topical 1 applic topical PRN 12/23/21 03/12/22 History powder (Nystop) quetiapine 50 mg tablet mg 12/23/21 History sennosides 8.6 mg tablet (senna) 8.6 mg PO PRN 12/23/21 History sertraline 50 mg tablet 50 mg PO DAILY 12/23/21 03/12/22 History melatonin 5 mg PO HS 03/11/22 03/12/22 History quetiapine 25 mg tablet 25 - 50 mg PO BID 03/11/22 03/12/22 History sennosides 8.6 mg capsule (senna) 8.6 mg PO BID 03/11/22 03/12/22 History Allergies Allergy/AdvReac Type Severity Reaction Status Date / Time donepezil Allergy Unknown Uncoded 03/12/22 07:59 Ortho Exam Narrative Exam Narrative: The patient is examined supine in the hospital bed. There is an area of ecchymosis over the greater trochanter, no surgical scars. Given the patient's dementia, CMS is difficult to assess but appears grossly intact. Const Vital Signs, click to edit/add: Vital Signs - 24 hr 03/12/22 07:59 03/12/22 08:51 03/12/22 09:21 Temperature 98.1 F Pulse Rate 65 Pulse Rate [Left Apical] Pulse Rate [Pulse Oximeter] 68 Respiratory Rate 14 Blood Pressure Blood Pressure [Left Upper Arm] 106/68 Pulse Oximetry 96 96 99 Oxygen Delivery Method Room Air 03/12/22 09:30 03/12/22 09:31 03/12/22 08:00 Temperature Pulse Rate 70 69 Pulse Rate [Left Apical] Pulse Rate [Pulse Oximeter] Respiratory Rate Blood Pressure 118/60 Blood Pressure [Left Upper Arm] 132/71 Pulse Oximetry 94 98 Oxygen Delivery Method 03/12/22 08:30 03/12/22 09:00 03/12/22 09:30 Temperature Pulse Rate Pulse Rate [Left Apical] Pulse Rate [Pulse Oximeter] Respiratory Rate Blood Pressure Blood Pressure [Left Upper Arm] 126/83 91/57 L 118/60 Pulse Oximetry Oxygen Delivery Method 03/12/22 12:12 03/12/22 14:04 03/12/22 15:00 Temperature 98.1 F Pulse Rate Pulse Rate [Left Apical] 63 63 Pulse Rate [Pulse Oximeter] Respiratory Rate 18 18 18 Blood Pressure Blood Pressure [Left Upper Arm] Pulse Oximetry 97 97 97 Oxygen Delivery Method Room Air Room Air Room Air 03/12/22 15:00 Temperature Pulse Rate Pulse Rate [Left Apical] 66 Pulse Rate [Pulse Oximeter] Respiratory Rate 18 Blood Pressure Blood Pressure [Left Upper Arm] Pulse Oximetry Oxygen Delivery Method Results Labs Labs: Laboratory Results - last 48 hr 03/12/22 03/12/22 03/12/22 08:47 08:47 08:47 WBC 10.08 RBC 3.91 L Hgb 12.5 Hct 38.2 MCV 98 MCH 32 MCHC 33 RDW Coeff of Galo 12.7 Plt Count 205 Neut % (Auto) 82.0 H Lymph % (Auto) 9.5 L [place] % (Auto) 7.8 Eos % (Auto) 0.1 Baso % (Auto) 0.2 Neut # (Auto) 8.30 H Lymph # (Auto) 1.00 [place] # (Auto) 0.80 Eos # (Auto) 0.01 Baso # (Auto) 0.02 Abs Immat Gran (auto) 0.04 Sodium 140 Potassium 3.9 Chloride 108 Carbon Dioxide 24 BUN 24 Creatinine 0.4 L Estimated Creat Clear 41.88 Estimated GFR 105 Glucose 136 H Lactate 1.0 Calcium 8.6 Total Bilirubin 0.3 AST 21 ALT 13 Alkaline Phosphatase 62 Troponin I < 0.01 L C-Reactive Protein 0.5 Total Protein 6.5 Albumin 4.0 Urine Color Urine Appearance Urine pH Ur Specific Pompey Urine Protein Urine Glucose (UA) Urine Ketones Urine Blood Urine Nitrite Urine Bilirubin Urine Urobilinogen Ur Leukocyte Esterase Urine RBC Urine WBC Ur Squamous Epith Cells Amorphous Sediment Urine Bacteria SARS-CoV-2 (PCR) Influenza Type A (PCR) Influenza Type B (PCR) 03/12/22 03/12/22 09:35 10:53 WBC RBC Hgb Hct MCV MCH MCHC RDW Coeff of Galo Plt Count Neut % (Auto) Lymph % (Auto) [place] % (Auto) Eos % (Auto) Baso % (Auto) Neut # (Auto) Lymph # (Auto) [place] # (Auto) Eos # (Auto) Baso # (Auto) Abs Immat Gran (auto) Sodium Potassium Chloride Carbon Dioxide BUN Creatinine Estimated Creat Clear Estimated GFR Glucose Lactate Calcium Total Bilirubin AST ALT Alkaline Phosphatase Troponin I C-Reactive Protein Total Protein Albumin Urine Color Yellow Urine Appearance Slightly Cloudy A Urine pH 8.5 Ur Specific Pompey 1.015 Urine Protein Trace A Urine Glucose (UA) Negative Urine Ketones 1+ A Urine Blood Negative Urine Nitrite Negative Urine Bilirubin Negative Urine Urobilinogen 2.0 A Ur Leukocyte Esterase Negative Urine RBC 0-2 Urine WBC 2-5 Ur Squamous Epith Cells Few Amorphous Sediment Many A Urine Bacteria Moderate A SARS-CoV-2 (PCR) Negative SARS-CoV-2 Influenza Type A (PCR) Negative PCR FLU A Influenza Type B (PCR) Negative PCR FLU B Diagnostic results Additional Comments: An AP pelvis, AP and cross-table lateral view of the right hip show a 3 part intertrochanteric fracture. There is no pre-existing hip joint arthritis. There is no obvious pathologic lesion. Assessment and Plan Assessment and plan (1) Fracture, intertrochanteric, right femur: Problem comment: Proceed to surgery as soon as it can safely be done. Status: Acute Total time spent: Total time spent is greater than 50% in coordination of care (as documented) at patient's floor/unit and/or counseling patient: (2) Frequent falls: Problem comment: High risk for falls. Status: Acute Total time spent: Total time spent is greater than 50% in coordination of care (as documented) at patient's floor/unit and/or counseling patient: (3) Lewy body dementia: Problem comment: High risk for perioperative delirium. Status: Acute Total time spent: Total time spent is greater than 50% in coordination of care (as documented) at patient's floor/unit and/or counseling patient: Plan Assessment: 3 part right hip intertrochanteric fracture Plan: She has been medically cleared for surgery. Therefore, we will plan intramedullary nailing of her right hip fracture. The plan was discussed with her by phone.
[2022-03-12] MEDS: MORPHINE 4 MG/ML INJ 2 MG IVP (18:01)
--- NOTE | 2022-03-12 18:04 | CRLHL7_ITS ---
For Patients: As a result of the Cures Act, medical imaging exams and procedure reports are released immediately into your electronic medical record. You may view this report before your referring provider. If you have questions, please contact your health care provider. Indication: Femoral rodding Technique: Interoperative fluoroscopic images Comparison: X-rays 03/12/2022 Findings: Intraoperative fluoroscopic images of the right hip demonstrates intramedullary cece and screw fixation through a right intertrochanteric fracture. 4 images 90 2 seconds fluoro time Dictated by Abbie Varela MD @ 03/13/2022 9:06:58 AM (Electronically Signed)
--- NOTE | 2022-03-12 18:13 | PC.NURSE ---
Pt appears to be resting comfortably this afternoon with visitor at bedside. Increased restlessness prior to sx and 2mg Morphine given IVP. VS WNL and LS COA. Ancef IVPB pre-op. Pt refusing ice pack to right hip. Sent to OR at 1814.
--- NOTE | 2022-03-12 19:11 | SUR.OPER ---
Patient transferred from Med Surg to OR2 by Bed. Patient was covered by 2 warm blankets. Spinal and local block was completed by CMV DRIVER. Patient was transferred to OR table.
--- NOTE | 2022-03-12 19:48 | P.ORPRC_ITS ---
Procedure Note Date of procedure: 03/12/22 Procedure: SURGEON: Piyush Guillory MD WAREHOUSE INVENTORY CLERK: Souleymane Velasco PA-C PREOPERATIVE DIAGNOSIS: Right hip 3 part intertrochanteric fracture POSTOPERATIVE DIAGNOSIS: Right hip 3 part intertrochanteric fracture NAME OF OPERATION: Right hip fracture ORIF IMPLANTS: Synthes intramedullary hip screw 11 mm x 380 mm with a 95 mm lag screw ANESTHESIA: Spinal ESTIMATED BLOOD LOSS: 25 mL COMPLICATIONS: None SPECIMENS: None DRAINS: None PREOPERATIVE ANTIBIOTICS: Ancef 1 gram INDICATIONS: The patient is a 71-year-old female who fell sustaining a 3 part intertrochanteric fracture of the right hip. They were admitted for workup and care. They have been medically cleared for surgery. The risks, benefits and expected outcomes were discussed in detail. These included but were not limited to: Infection, bleeding, injury to blood vessel or nerve, venous thromboembolism. All questions were answered to their satisfaction. Use of an regional administrative assistant was necessary for patient positioning and safety, soft tissue retraction and closure, dressing application, and transfer of the patient to and from the hospital bed to the fracture table. PROCEDURE: Spinal anesthesia was administered. The patient was placed supine on the fracture table. The right lower extremity was prepped and draped in the usual sterile fashion. The limb was placed in longitudinal traction. Our provisional reduction was confirmed with the C-arm. The guide pin was placed percutaneously to the tip of the greater trochanter. It was advanced into the canal. Its placement was confirmed with the image intensifier in both AP and lateral views. We then made a stab incision around the guide pin. The soft tissue sleeve was advanced to the tip of the trochanter. The opening Reamer was used. The ball- tipped guide cece was placed, taken to the distal femoral physeal scar. The 12.5 mm Reamer had cortical chatter. Length was measured. We made an incision over the flare of the greater trochanter. Dissection was carried with the Almodovar elevator to the lateral cortex. A bone hook was placed over the calcar to obtain an anatomic reduction. The intramedullary nail was placed. We held the fracture reduced with the bone hook and the guide pin was taken to the subchondral bone of the femoral head on both the AP and lateral views. It was placed in the posterior, inferior aspect of the head. The drill was used. We placed the 95 mm lag screw. We removed the bone hook. Our reduction remains anatomic. Traction was released. The fracture was compressed. The lag screw was set to dynamic mode. That is it was not locked. This construct was imaged in the AP and lateral views and was felt to be well placed with an anatomic reduction. The wounds were irrigated with normal saline. They were closed with Vicryl deep and Monocryl in the skin. A dry dressing was applied. Sponge and needle counts were correct x2. The patient tolerated the procedure well. There were no apparent complications. They were carefully transferred to the hospital bed and taken to the posta nesthesia care unit in satisfactory condition. PLAN: The patient will be mobilized with physical therapy. They may weightbear as tolerates on the right lower extremity. Xarelto x5 days, then aspirin 81 mg b.i.d. for 30 days will be used for DVT prophylaxis. They will be discharged to a penitentiary once medically appropriate.
--- NOTE | 2022-03-12 20:30 | W.PM.NB ---
Nerve Block Nerve Block Time Seen by Provider: 18:25 Date Seen: 03/12/22 Type of block requested by surgeon for post-operative analgesia: CHADWICK/LFCN Side: right Time out performed: Yes Verification of patient name: Yes Verification of date of : Yes Site marking: site marked Name of person performing procedure: Hesham Ruiz Continuous monitoring Was continuous monitoring of O2 sat, B/P, linux system administrator, recorded every 15 minutes?: Yes Procedure Checklist: sterile prep, needles and gloves Ultrasound guided. Images saved: Yes Medications given in 5ml increments after negative aspiration: Ropivicaine %: 0.5 mL: 25 Needle gauge: 20 Patient tolerated procedure well: Yes Block Charges Block Charge (with Pro Fee): Other Periph Nerve Block Use of Ultrasound Machine for Block: Yes- US Guidance/pain block
--- NOTE | 2022-03-12 20:32 | W.ANESCHARGE ---
Anesthesia Charges Start Date/Time Anesthesia Start Date: 03/12/22 Anesthesia Start Time: 18:17 Stop Date/Time Anesthesia Stop Date: 03/12/22 Anesthesia Stop Time: 20:26 Summary Emergency: Yes Extremes of Age: Over 69-CPT 13913
[2022-03-12] MEDS: LACTATED RINGERS 1000 ML 1,000 ML 75 ML IV (21:05)
--- NOTE | 2022-03-12 21:38 | SUR.PHASEI ---
Patient meets PACU Discharge Criteria. Per Anesthesia, Hesham Ruiz PR SPECIALIST Patient is able to be discharged back to Med Surg unit.
[2022-03-12] MEDS: HYDROmorphone 0.5 mg/0.5 ml inj IVP (21:41)
[2022-03-13] VITALS (12 sets, daily range): BP systolic 119–153; BP diastolic 59–82; PULSE 70–95; RESP 16–20; TEMP 36.2–37.2; O2SAT 90–98
[2022-03-13] MEDS: HYDROmorphone 0.5 mg/0.5 ml inj IVP ×5 (00:15→20:26)
[2022-03-13] MEDS: CEFAZOLIN 1 GM in 0.9 % SODIUM CHLORIDE Mini-bag 100 ML IVPB ×3 (02:31→17:32)
[2022-03-13] MEDS: LACTATED RINGERS 1000 ML 1,000 ML 75 ML IV (04:59)
--- NOTE | 2022-03-13 06:10 | PC.NURSE ---
SHIFT NOTE: Pt back from the OR just after 2100. Pt pulling at Bran, IV, and blood pressure cough, yelling out please and help me, PRN Dilaudid given with good relief, pt settled down and fell to sleep. Pt disoriented with lewy body dementia, unable to answer questions or rate pain, attempts to have pt use IS and take a drink of water were unsuccessful. Afebrile. 1L O2 PNC applied to keep oxygen saturations >90%. Dressing C/D/I, active ice to sx site continuously. Bran patent and draining.
[2022-03-13 08:54] LABS: Hemoglobin* 11.2 gm/dL (12.0-16.0); Mean Corpuscular HGB Conc 33 gm/dL (32-36); Mean Corpuscular Hemoglobin 32 pg (26-34); Mean Corpuscular Volume 97 fL (80-100); Platelet Count* 190 K/uL (140-440); White Blood Count* 10.61 K/uL (4.50-11.00)
[2022-03-13 09:03] LABS: Potassium* 3.9 mmol/L (3.6-5.1); Sodium* 137 mmol/L (135-149)
[2022-03-13 09:06] LABS: Blood Urea Nitrogen* 20 mg/dL (7-30); Creatinine* 0.4 mg/dL (0.5-1.5); Est. Creatinine Clearance* 44.39; Estimated Glomerular Filt Rate 105 ml/min
[2022-03-13 09:07] LABS: Slide Review Reflex No
[2022-03-13] MEDS: SENNOSIDES 1 TAB TABLET 2 TAB PO ×2 (09:23→20:30)
[2022-03-13] MEDS: SERTRALINE 50 MG TABLET PO (09:23)
[2022-03-13] MEDS: QUETIAPINE 25 MG TABLET PO ×2 (09:23→20:29)
[2022-03-13] MEDS: ACETAMINOPHEN 325 MG TABLET 650 MG PO ×3 (09:24→21:22)
[2022-03-13] MEDS: CYANOCOBALAMIN (VITAMIN B-12) 500 MCG TABLET 1000 MCG PO (09:24)
[2022-03-13] MEDS: DIVALPROEX SODIUM 125 MG CAP.DR.SPR 250 MG PO ×3 (09:25→20:30)
[2022-03-13] MEDS: NYSTATIN POWDER 1 APPLIC TOPICAL (09:26)
[2022-03-13] MEDS: OXYCODONE 5 MG TABLET PO ×3 (09:35→15:29)
[2022-03-13] MEDS: RIVAROXABAN 10 MG TABLET PO (11:15)
--- NOTE | 2022-03-13 11:19 | PC.SOCIAL ---
Met with pt.'s spouse Jarvis at [phone] to discuss discharge plans. Jarvis lives in [place], [place] and pt. had lived there in an [place] until 2 years ago. Pt. then moved to [facility] due to having providers on staff to assist with pt.'s health needs. Pt.'s son lives in [place] and Jarvis drives down to see pt. 2x a month and stays a few days with his son. Pt. has Lewy Body Dementia and no longer recognizes her family. Pt. will need a SNF for rehab and more than likely group home care. Jarvis prefers placement in [place] or the [facility] [place]. [facility] in [place] has a COVID outbreak and is not accepting admissions. [facility] has openings and is assessing.
--- NOTE | 2022-03-13 12:11 | PM.IMPN1 ---
Progress Note: A&P Assessment and plan (1) Delirium due to another medical condition: Problem details: Appears to have a hypoactive delirium. Goal be to get her to be able to eat and drink, provide her own hydration and nutrition. Management of pain medications to avoid over or under dosing opioids Status: Acute (2) Lewy body dementia: Problem details: Delirium with dementia postop Status: Acute (3) Frequent falls: Problem details: High risk for falls. Status: Acute (4) Fracture, intertrochanteric, right femur: Problem details: No obvious operative complications Status: Acute (5) Traumatic hematoma of forehead: Problem details: No intracranial injury Status: Acute Plan Continue in hospital for management of delirium and postoperative cares. Once she is able to take in food and fluid will likely be able to go to a nursing facility for rehab. Time Spent With Patient Total time spent: Total time spent today is 25 minutes, 20 minutes in coordination of care and discussing with other providers management of delirium Subjective Date Seen: 03/13/22 Interval history: 71-year-old female seen in followup of hip fracture ORIF last evening. Patient has appeared comfortable without obvious new problems overnight. Due to dementia she is relatively unresponsive and when aroused and moved becomes relatively agitated. She has not had significant p.o. intake so far. Exam Narrative: Exam Narrative: She is sleeping but arouses to voice. When I arouse her she mom bowls incoherently. She is not particularly agitated with this. Lungs are clear to auscultation. Cardiovascular: S1, S2, regular rate and rhythm. Abdomen is soft without tenderness or mass. Unable to get her to cooperate with movement except I do observe that she moves both upper extremities relatively well. She is observed to be crying out when transferred bed to chair by therapy. Then relatively quickly settles down to sleep. Const: Vital Signs, click to edit/add: Vital Signs - 24 hr 03/12/22 12:12 03/12/22 14:04 03/12/22 15:00 Temperature 98.1 F Pulse Rate Pulse Rate [Left A pical] 63 63 Respiratory Rate 18 18 18 Blood Pressure Blood Pressure [Ri ght Arm] Pulse Oximetry 97 97 97 Oxygen Delivery Me thod Room Air Room Air Room Air Oxygen Flow Rate 03/12/22 15:00 03/12/22 20:23 03/12/22 20:30 Temperature 98 F Pulse Rate 68 66 Pulse Rate [Left A pical] 66 Respiratory Rate 18 16 12 Blood Pressure 133/106 H 139/92 H Blood Pressure [Ri ght Arm] Pulse Oximetry 96 98 Oxygen Delivery Me thod OxyMask OxyMask Oxygen Flow Rate 9 9 03/12/22 20:35 03/12/22 20:40 03/12/22 20:43 Temperature Pulse Rate 66 66 69 Pulse Rate [Left A pical] Respiratory Rate 12 12 12 Blood Pressure 139/92 H 68/55 L 61/48 L Blood Pressure [Ri ght Arm] Pulse Oximetry 98 96 90 Oxygen Delivery Me thod OxyMask OxyMask OxyMask Oxygen Flow Rate 9 9 9 03/12/22 20:45 03/12/22 20:50 03/12/22 20:55 Temperature Pulse Rate 66 68 68 Pulse Rate [Left A pical] Respiratory Rate 12 12 12 Blood Pressure 123/79 136/66 138/69 Blood Pressure [Ri ght Arm] Pulse Oximetry 100 100 100 Oxygen Delivery Me thod OxyMask OxyMask OxyMask Oxygen Flow Rate 9 9 9 03/12/22 21:00 03/12/22 21:05 03/12/22 21:22 Temperature 99.1 F 97.9 F Pulse Rate 74 75 Pulse Rate [Left A pical] Respiratory Rate 12 12 16 Blood Pressure 98/69 160/69 H Blood Pressure [Ri ght Arm] 135/80 Pulse Oximetry 97 95 90 Oxygen Delivery Me thod OxyMask Room Air Room Air Oxygen Flow Rate 5 03/12/22 21:30 03/12/22 22:00 03/12/22 21:45 Temperature 97.9 F 98 F 98 F Pulse Rate Pulse Rate [Left A pical] 72 74 Respiratory Rate 18 16 18 Blood Pressure Blood Pressure [Ri ght Arm] 144/89 H 127/93 H 141/71 H Pulse Oximetry 86 L 97 96 Oxygen Delivery Me thod Room Air Nasal Cannula Nasal Cannula Oxygen Flow Rate 2 2 03/12/22 22:15 03/12/22 22:30 03/12/22 23:00 Temperature 98.1 F 98 F 97.8 F Pulse Rate Pulse Rate [Left A pical] 72 70 74 Respiratory Rate 16 16 18 Blood Pressure Blood Pressure [Ri ght Arm] 150/79 H 151/83 H 156/71 H Pulse Oximetry 96 97 96 Oxygen Delivery Me thod Nasal Cannula Nasal Cannula Nasal Cannula Oxygen Flow Rate 2 2 2 03/12/22 23:30 03/13/22 00:00 03/12/22 22:00 Temperature 98.5 F 98.8 F 98.0 F Pulse Rate 72 Pulse Rate [Left A pical] 74 74 Respiratory Rate 18 18 18 Blood Pressure [facility] 150/76 H 151/76 H 127/93 H Pulse Oximetry 95 95 Oxygen Delivery Me thod Nasal Cannula Nasal Cannula Nasal Cannula Oxygen Flow Rate 1 1 1 03/13/22 01:00 03/13/22 02:00 03/13/22 03:00 Temperature 98.9 F 98.8 F 98.8 F Pulse Rate Pulse Rate [Left A pical] 73 70 71 Respiratory Rate 20 18 18 Blood Pressure Blood Pressure [Ri ght Arm] 131/78 136/73 134/71 Pulse Oximetry 97 96 94 Oxygen Delivery Me thod Nasal Cannula Room Air Room Air Oxygen Flow Rate 1 1 03/13/22 07:42 03/13/22 08:01 03/13/22 10:47 Temperature 97.7 F 97.1 F L Pulse Rate Pulse Rate [Left A pical] 81 81 79 Respiratory Rate 16 16 16 Blood Pressure Blood Pressure [facility]] 138/80 121/59 L Pulse Oximetry 91 90 Oxygen Delivery Me thod Nasal Cannula Room Air Oxygen Flow Rate 2 Documenting provider has reviewed patient's vital signs: yes Labs Labs: Laboratory Results - last 24 hr 03/13/22 03/13/22 08:37 08:37 WBC 10.61 RBC 3.50 L Hgb 11.2 L Hct 34.0 MCV 97 MCH 32 MCHC 33 Plt Count 190 Sodium 137 Potassium 3.9 BUN 20 Creatinine 0.4 L Estimated Creat Clear 44.39 Estimated GFR 105
--- NOTE | 2022-03-13 13:06 | PM.ORPN ---
Subjective Subjective Date Seen: 03/13/22 Principal diagnosis: Status postop day 1 right femur IM nail for intertrochanteric fracture Interval history: Unable to receive history from patient due to significant Lewy body dementia. Staff report that though she was much quite agitated trying to get out of bed, since surgery, she is refusing to move. Her speech, when present, is incoherent. No acute events over night. Pain managed with scheduled /PRN medications and ice. DVT prophylaxis rivaroxaban which started today, bilateral knee high Timi stockings, and SCDs. Unable to ascertain any further history from the patient. Ortho Exam Narrative Exam Narrative: -Patient appears comfortable in recliner, resting; no apparent acute distress -Alert and oriented times 3 -Operative hip swollen; soft tissues supple; no obvious erythema. Ecchymosis minimal. Warmth appropriate -Surgical dressings are clean, dry, intact; no obvious drainage, no erythematous streaking peripheral to the bandage -Bilateral calves soft and supple; no significant swelling, edema, tenderness, erythema, discoloration, warmth, or palpable cords -2+ DP/PT pulses, intact dermatomes and myotomes distally Moderately large hematoma to the right orbit/frontal/temporal bone Const Vital Signs, click to edit/add: Vital Signs - 24 hr 03/12/22 14:04 03/12/22 15:00 03/12/22 15:00 Temperature 98.1 F Pulse Rate Pulse Rate [Left Apical] 63 66 Respiratory Rate 18 18 18 Blood Pressure Blood Pressure [Right Arm] Pulse Oximetry 97 97 Oxygen Delivery Method Room Air Room Air Oxygen Flow Rate 03/12/22 20:23 03/12/22 20:30 03/12/22 20:35 Temperature 98 F Pulse Rate 68 66 66 Pulse Rate [Left Apical] Respiratory Rate 16 12 12 Blood Pressure 133/106 H 139/92 H 139/92 H Blood Pressure [Right Arm] Pulse Oximetry 96 98 98 Oxygen Delivery Method OxyMask OxyMask OxyMask Oxygen Flow Rate 9 9 9 03/12/22 20:40 03/12/22 20:43 03/12/22 20:45 Temperature Pulse Rate 66 69 66 Pulse Rate [Left Apical] Respiratory Rate 12 12 12 Blood Pressure 68/55 L 61/48 L 123/79 Blood Pressure [Right Arm] Pulse Oximetry 96 90 100 Oxygen Delivery Method OxyMask OxyMask OxyMask Oxygen Flow Rate 9 9 9 03/12/22 20:50 03/12/22 20:55 03/12/22 21:00 Temperature Pulse Rate 68 68 74 Pulse Rate [Left Apical] Respiratory Rate 12 12 12 Blood Pressure 136/66 138/69 98/69 Blood Pressure [Right Arm] Pulse Oximetry 100 100 97 Oxygen Delivery Method OxyMask OxyMask OxyMask Oxygen Flow Rate 9 9 5 03/12/22 21:05 03/12/22 21:22 03/12/22 21:30 Temperature 99.1 F 97.9 F 97.9 F Pulse Rate 75 Pulse Rate [Left Apical] Respiratory Rate 12 16 18 Blood Pressure 160/69 H Blood Pressure [Right Arm] 135/80 144/89 H Pulse Oximetry 95 90 86 L Oxygen Delivery Method Room Air Room Air Room Air Oxygen Flow Rate 03/12/22 22:00 03/12/22 21:45 03/12/22 22:15 Temperature 98 F 98 F 98.1 F Pulse Rate Pulse Rate [Left Apical] 72 74 72 Respiratory Rate 16 18 16 Blood Pressure Blood Pressure [Right Arm] 127/93 H 141/71 H 150/79 H Pulse Oximetry 97 96 96 Oxygen Delivery Method Nasal Cannula Nasal Cannula Nasal Cannula Oxygen Flow Rate 2 2 2 03/12/22 22:30 03/12/22 23:00 03/12/22 23:30 Temperature 98 F 97.8 F 98.5 F Pulse Rate Pulse Rate [Left Apical] 70 74 74 Respiratory Rate 16 18 18 Blood Pressure Blood Pressure [Right Arm] 151/83 H 156/71 H 150/76 H Pulse Oximetry 97 96 95 Oxygen Delivery Method Nasal Cannula Nasal Cannula Nasal Cannula Oxygen Flow Rate 2 2 1 03/13/22 00:00 03/12/22 22:00 03/13/22 01:00 Temperature 98.8 F 98.0 F 98.9 F Pulse Rate 72 Pulse Rate [Left Apical] 74 73 Respiratory Rate 18 18 20 Blood Pressure Blood Pressure [Right Arm] 151/76 H 127/93 H 131/78 Pulse Oximetry 95 97 Oxygen Delivery Method Nasal Cannula Nasal Cannula Nasal Cannula Oxygen Flow Rate 1 1 1 03/13/22 02:00 03/13/22 03:00 03/13/22 07:42 Temperature 98.8 F 98.8 F 97.7 F Pulse Rate Pulse Rate [Left Apical] 70 71 81 Respiratory Rate 18 18 16 Blood Pressure Blood Pressure [Right Arm] 136/73 134/71 138/80 Pulse Oximetry 96 94 91 Oxygen Delivery Method Room Air Room Air Nasal Cannula Oxygen Flow Rate 1 2 03/13/22 08:01 03/13/22 10:47 Temperature 97.1 F L Pulse Rate Pulse Rate [Left Apical] 81 79 Respiratory Rate 16 16 Blood Pressure Blood Pressure [Right Arm] 121/59 L Pulse Oximetry 90 Oxygen Delivery Method Room Air Oxygen Flow Rate Assessment and Plan Assessment and plan (1) Delirium due to another medical condition: Problem details: Appears to have a hypoactive delirium. Goal be to get her to be able to eat and drink, provide her own hydration and nutrition. Management of pain medications to avoid over or under dosing opioids Status: Acute (2) Lewy body dementia: Problem details: Delirium with dementia postop Status: Acute (3) Status post-operative repair of closed fracture of right hip: Problem details: POD 1 right femur IM nail for intertrochanteric fracture Status: Acute (4) Fracture, intertrochanteric, right femur: Status: Acute (5) Frequent falls: Problem details: High risk for falls. Status: Acute (6) Traumatic hematoma of forehead: Problem details: No intracranial injury Status: Acute Plan - Complete 23 hour perioperative antibiotics. - PT/OT consult for education and assistance - understand that this will be difficult - Social work consult for discharge planning - Prescribed analgesics as needed - DVT prophylaxis: Rivaroxaban, bilateral knee high Timi Hose stockings and SCDs - Anticipation is for discharge to SNF once patient remains medically stable, pain is controlled
--- NOTE | 2022-03-13 13:54 | PC.NURSE ---
Shift Note 07-15: Pt pleasant and cooperative, A&O x0. Pt pleasantly confused at baseline, will open eyes to name but cannot give her name or any identifying information. Pt unable to rate pain or respond in a meaningful way. Pain appears to be controlled with 2.5 mg oxycodone q3h, Pt takes PO pills adequately with applesauce. Pt does not use call light appropriately, but will call out when in pain. After PT eval, Pt requiring ceiling lift for transfers as she is unable to tolerate bearing weight on right side and incapable of maneuvering with a walker. Bran patent and draining. Pt tolerating reg diet, requiring total feeding assistance. See eMAR for medication administration.
--- NOTE | 2022-03-13 20:02 | PC.NURSE ---
Battery Builder had difficulty giving pain meds whole in A.S. - would suggest crushed in A.S. Turn and repo as tolerated, pt shouted out in pain with repo. 02 sats dropped to 83% when sleeping after dilaudid admin. Order obtained for 02, pt sats improved quickly and tapered off. Bran patent and draining. Surgical dressings CDI. Active ice in place.
[2022-03-13] MEDS: MELATONIN 3 MG TABLET PO (20:28)
[2022-03-14] VITALS (7 sets, daily range): BP systolic 109–160; BP diastolic 71–86; PULSE 73–87; RESP 16; TEMP 36.8–37; O2SAT 94–100
[2022-03-14] MEDS: HYDROmorphone 0.5 mg/0.5 ml inj IVP ×5 (00:37→13:59)
[2022-03-14 06:48] LABS: Hematocrit 30.2 % (33.0-51.0); Hemoglobin* 9.9 gm/dL (12.0-16.0); Mean Corpuscular HGB Conc 33 gm/dL (32-36); Mean Corpuscular Hemoglobin 32 pg (26-34); Mean Corpuscular Volume 99 fL (80-100); Platelet Count* 153 K/uL (140-440); Red Blood Count 3.06 m/uL (4.00-5.20)
[2022-03-14 06:56] LABS: Slide Review Reflex No
[2022-03-14 07:05] LABS: Potassium* 3.9 mmol/L (3.6-5.1); Sodium* 137 mmol/L (135-149)
[2022-03-14 07:08] LABS: Creatinine* 0.5 mg/dL (0.5-1.5); Est. Creatinine Clearance* 44.39; Estimated Glomerular Filt Rate 100 ml/min
[2022-03-14 07:09] LABS: Blood Urea Nitrogen* 17 mg/dL (7-30)
--- NOTE | 2022-03-14 08:24 | P.ORPN_ITS ---
Subjective Subjective Date Seen: 03/14/22 Principal diagnosis: Status postop day 2 right femur IM nail for intertrochanteric fracture Interval history: Poor historian due to significant Lewy body dementia. Becomes stiff with any transfers or attempts at movement due to pain. Speech is incoherent. No acute events over night. Pain managed with scheduled /PRN medications and ice. DVT prophylaxis rivaroxaban which started today, bilateral knee high Timi stockings, and SCDs. Unable to ascertain any further history from the patient. She is eating with the help of assistant chief nursing officer. Ortho Exam Narrative Exam Narrative: -Patient appears comfortable in recliner eating breakfast with assistant chief nursing officer; no apparent acute distress -alert to verbal -Operative hip moderately swollen; soft tissues supple; no obvious erythema. Ecchymosis minimal. Warmth appropriate -Surgical dressings are clean, dry, intact; no obvious drainage, no erythematous streaking peripheral to the bandage -Bilateral calves soft and supple; no significant swelling, edema, erythema, discoloration, warmth, or palpable cords; she has some mild tenderness to palpation right calf, but simple foot motion causes her to wince in pain -2+ DP/PT pulses, intact dermatomes and myotomes distally. Const Vital Signs, click to edit/add: Vital Signs - 24 hr 03/13/22 10:47 03/13/22 15:00 03/13/22 15:00 Temperature 97.1 F L 98.6 F Pulse Rate [Left Apical] 79 81 Respiratory Rate 16 16 16 Blood Pressure [Right Arm] 121/59 L 119/82 Pulse Oximetry 90 92 Oxygen Delivery Method Room Air Room Air Oxygen Flow Rate 0 03/13/22 18:08 03/13/22 19:00 03/13/22 22:31 Temperature 98.7 F Pulse Rate [Left Apical] 95 Respiratory Rate 16 16 Blood Pressure [Right Arm] 153/76 H Pulse Oximetry 94 97 Oxygen Delivery Method Room Air Room Air Oxygen Flow Rate 03/13/22 22:57 03/14/22 03:00 Temperature 98.4 F 98.6 F Pulse Rate [Left Apical] 80 75 Respiratory Rate 16 16 Blood Pressure [Right Arm] 143/75 H 122/75 Pulse Oximetry 98 98 Oxygen Delivery Method Room Air Room Air Oxygen Flow Rate Assessment and Plan Assessment and plan (1) Delirium due to another medical condition: Problem details: Appears to have a hypoactive delirium. Goal be to get her to be able to eat and drink, provide her own hydration and nutrition. Management of pain medications to avoid over or under dosing opioids Status: Acute (2) Lewy body dementia: Problem details: Delirium with dementia postop Status: Acute (3) Status post-operative repair of closed fracture of right hip: Problem details: POD 2 right femur IM nail for intertrochanteric fracture Status: Acute (4) Fracture, intertrochanteric, right femur: Status: Acute (5) Frequent falls: Problem details: High risk for falls. Status: Acute (6) Traumatic hematoma of forehead: Problem details: No intracranial injury Status: Acute Plan - Complete 23 hour perioperative antibiotics. - PT/OT consult for education and assistance. - Social work consult for discharge planning - SNF needed - Prescribed analgesics as needed; in my opinion keeping the dosage low for oral narcotics to prevent exacerbation of delirium/confusion - DVT prophylaxis: Rivaroxaban, bilateral knee high Timi Hose stockings and SCDs - Anticipation is for discharge to SNF once patient remains medically stable, pain is controlled
[2022-03-14] MEDS: OXYCODONE 5 MG TABLET PO ×4 (09:38→20:47)
[2022-03-14] MEDS: SERTRALINE 50 MG TABLET PO (09:38)
[2022-03-14] MEDS: CYANOCOBALAMIN (VITAMIN B-12) 500 MCG TABLET 1000 MCG PO (09:38)
[2022-03-14] MEDS: SENNOSIDES 1 TAB TABLET 2 TAB PO ×2 (09:38→21:21)
[2022-03-14] MEDS: RIVAROXABAN 10 MG TABLET PO (09:38)
[2022-03-14] MEDS: ACETAMINOPHEN 325 MG TABLET 650 MG PO ×3 (09:38→21:21)
[2022-03-14] MEDS: QUETIAPINE 25 MG TABLET PO ×2 (09:39→21:21)
[2022-03-14] MEDS: NYSTATIN POWDER 1 APPLIC TOPICAL (09:40)
[2022-03-14] MEDS: DIVALPROEX SODIUM 125 MG CAP.DR.SPR 250 MG PO ×3 (09:40→21:21)
--- NOTE | 2022-03-14 12:09 | PC.SOCIAL ---
Pt. has been accepted to [facility]. Pt. will start out in a shared room and then will move to a private room in a couple of days. Pt. may need a bed in the [facility] unit and [facility] will accommodate as needed. Pt.'s spouse Jarvis is pleased with this plan. Pt. will need to transport via stretcher EMS. Updated [facility] and they would like discharge around between 10-11 am. Jarvis will arrive at the hospital at 10 am to follow transport.
--- NOTE | 2022-03-14 12:31 | P.IMPN_ITS ---
Progress Note: A&P Assessment and plan (1) Delirium due to another medical condition: Problem details: Appears to have a hypoactive delirium. Goal be to get her to be able to eat and drink, provide her own hydration and nutrition. Management of pain medications to avoid over or under dosing opioids Status: Acute (2) Lewy body dementia: Problem details: Delirium with dementia postop Status: Acute (3) Status post-operative repair of closed fracture of right hip: Problem details: POD 2 right femur IM nail for intertrochanteric fracture Status: Acute (4) Fracture, intertrochanteric, right femur: Status: Acute (5) Frequent falls: Problem details: High risk for falls. Status: Acute (6) Traumatic hematoma of forehead: Problem details: No intracranial injury Status: Acute Plan Continue in hospital for management of pain and delirium. If able to tolerate p.o. food and fluid adequately today probably to long-term for rehab tomorrow Time Spent With Patient Total time spent: Total time spent today is 40 minutes, 35 minutes in discussing with end of life cares and discussing with other providers recovery from surgery and management of delirium Subjective Date Seen: 03/14/22 Interval history: 71-year-old female seen in followup of hip fracture surgery and dementia. Patient is a little less agitated today. Still having pain with movement. She has been able to eat and drink when fed. Nursing have not noted any other complications. Patient seen with her today. He gives additional history about her dementia. He notes that it has been about 10 years that she has had dementia. For the 1st 5 years he care for her in the home but in the last few years she was in a long-term and then in a memory care assisted living here in [place]. He reports he has generally been doing well and that she is quite healthy other than her dementia. We did have a discussion about goals of care, end of life care and what her wishes would be. She is DNR and DNI. He also tells me that her mom was given a feeding tube at the end of life and she discontinued that because she did want her mom to live that way and said she would not want a live that way. is uncertain about whether to limit intervention for serious illness. He does acknowledge that he thinks her quality of life is poor. He is going to discuss this with the patient's brother as well. I indicated that the patient appears to be quite healthy other than her severe dementia, MS, current hip fracture. I would expect infection, especially aspiration pneumonia, or fall with new serious injury as to being the next serious health problem in her life. Exam Narrative: Exam Narrative: She is lying in the recliner and appears comfortable. When I arouse her she wakes up and begins talking. Her words are somewhat more fluent today but still incomprehensible in terms of meaning. She appears less agitated than yesterday when I arouse her. She falls asleep fairly easily when left undisturbed. Respirations are clear to auscultation. Cardiovascular: S1, S2, regular rate and rhythm. Abdomen is soft without tenderness or mass. She moves all 4 extremities fairly well. Const: Vital Signs, click to edit/add: Vital Signs - 24 hr 03/13/22 15:00 03/13/22 15:00 03/13/22 18:08 Temperature 98.6 F Pulse Rate [Left A pical] 81 Respiratory Rate 16 16 Blood Pressure [Ri ght Arm] 119/82 Pulse Oximetry 92 94 Oxygen Delivery Me thod Room Air Room Air Oxygen Flow Rate 0 03/13/22 19:00 03/13/22 22:31 03/13/22 22:57 Temperature 98.7 F 98.4 F Pulse Rate [Left A pical] 95 80 Respiratory Rate 16 16 16 Blood Pressure [Ri ght Arm] 153/76 H 143/75 H Pulse Oximetry 97 98 Oxygen Delivery Me thod Room Air Room Air Oxygen Flow Rate 03/14/22 03:00 03/14/22 07:00 03/14/22 07:00 Temperature 98.6 F 98.4 F Pulse Rate [Left A pical] 75 84 84 Respiratory Rate 16 16 16 Blood Pressure [Ri ght Arm] 122/75 160/80 H Pulse Oximetry 98 94 Oxygen Delivery Me thod Room Air Room Air Oxygen Flow Rate 0 Labs Labs: Laboratory Results - last 24 hr 03/14/22 03/14/22 06:38 06:38 WBC 9.10 RBC 3.06 L Hgb 9.9 L Hct 30.2 L MCV 99 MCH 32 MCHC 33 Plt Count 153 Sodium 137 Potassium 3.9 BUN 17 Creatinine 0.5 Estimated Creat Clear 44.39 Estimated GFR 100
--- NOTE | 2022-03-14 15:59 | PC.NURSE ---
Pt accepted to [facility] tomorrow. Spouse in room with SS to discuss plan. Pt shouts out with slight movement/repo. up in chair today. complete feeder with meals. pills crushed in . oxy and dilaudid for pain, pt resting comfortably after administration.
--- NOTE | 2022-03-14 17:09 | PM.ORPN ---
Subjective Subjective Date Seen: 03/14/22 Principal diagnosis: Status postop day 2 right femur IM nail for intertrochanteric fracture Interval history: Patient unable to give history due to severe dementia here [No] acute events over night. Pain managed with scheduled /PRN medications and ice. DVT prophylaxis [], bilateral knee high Timi stockings, and SCDs. [dizzy]. Denies fevers, chills, aches, N/V, CP, SOB/TINSLEY, tachycardia, [or] tachypnea [lightheadedness]. Ortho Exam Const Vital Signs, click to edit/add: Vital Signs - 24 hr 03/13/22 18:08 03/13/22 19:00 03/13/22 22:31 Temperature 98.7 F Pulse Rate [Left Apical] 95 Respiratory Rate 16 16 Blood Pressure [Right Arm] 153/76 H Pulse Oximetry 94 97 Oxygen Delivery Method Room Air Room Air Oxygen Flow Rate 03/13/22 22:57 03/14/22 03:00 03/14/22 07:00 Temperature 98.4 F 98.6 F Pulse Rate [Left Apical] 80 75 84 Respiratory Rate 16 16 16 Blood Pressure [Right Arm] 143/75 H 122/75 Pulse Oximetry 98 98 Oxygen Delivery Method Room Air Room Air Oxygen Flow Rate 03/14/22 07:00 03/14/22 11:00 03/14/22 15:00 Temperature 98.4 F 98.4 F Pulse Rate [Left Apical] 84 74 Respiratory Rate 16 16 16 Blood Pressure [Right Arm] 160/80 H Pulse Oximetry 94 97 Oxygen Delivery Method Room Air Room Air Oxygen Flow Rate 0 0 03/14/22 15:00 Temperature 98.4 F Pulse Rate [Left Apical] 76 Respiratory Rate 16 Blood Pressure [Right Arm] 136/86 Pulse Oximetry 97 Oxygen Delivery Method Room Air Oxygen Flow Rate 0 Assessment and Plan Assessment and plan (1) Delirium due to another medical condition: Problem details: Appears to have a hypoactive delirium. Goal be to get her to be able to eat and drink, provide her own hydration and nutrition. Management of pain medications to avoid over or under dosing opioids Status: Acute (2) Lewy body dementia: Problem details: Delirium with dementia postop Status: Acute (3) Status post-operative repair of closed fracture of right hip: Problem details: POD 2 right femur IM nail for intertrochanteric fracture Status: Acute (4) Fracture, intertrochanteric, right femur: Status: Acute (5) Frequent falls: Problem details: High risk for falls. Status: Acute (6) Traumatic hematoma of forehead: Problem details: No intracranial injury Status: Acute
--- NOTE | 2022-03-14 17:32 | PC.NURSE ---
PATIENT AWAKES TO VOICE, ABLE TO TO COMPREHEND SPEECH ALTHOUGH SPEECH IS MORE RAMBLING, DOESN'T ANSWER QUESTIONS APPROPRIATELY, RUCHI DC'D CATHETER INTACT PER ODER, EATING SMALL BITES OF MEAL AND SIPS OF WATER WITH THE HELP OF NURSING, PRN PAIN MEDICATION SEE EMAR, TAKES MEDIATIONS CRUSHED.
[2022-03-14] MEDS: MELATONIN 3 MG TABLET PO (21:21)
[2022-03-15 03:00] VITALS: BP 117/89; PULSE 75; RESP 16; TEMP 36.9; O2SAT 97
[2022-03-15 07:00] VITALS: BP 143/70; PULSE 83; RESP 16; TEMP 36.9; O2SAT 100
[2022-03-15 08:43] LABS: Hematocrit 30.8 % (33.0-51.0); Mean Corpuscular HGB Conc 33 gm/dL (32-36); Mean Corpuscular Hemoglobin 32 pg (26-34); Mean Corpuscular Volume 98 fL (80-100); Platelet Count* 164 K/uL (140-440); Red Blood Count 3.15 m/uL (4.00-5.20); White Blood Count* 7.42 K/uL (4.50-11.00)
[2022-03-15 08:45] LABS: Slide Review Reflex No
[2022-03-15 08:56] LABS: Potassium* 3.5 mmol/L (3.6-5.1); Sodium* 139 mmol/L (135-149)
[2022-03-15 08:59] LABS: Blood Urea Nitrogen* 19 mg/dL (7-30); Creatinine* 0.4 mg/dL (0.5-1.5); Est. Creatinine Clearance* 44.39; Estimated Glomerular Filt Rate 105 ml/min
[2022-03-15] MEDS: DIVALPROEX SODIUM 125 MG CAP.DR.SPR 250 MG PO (09:05)
[2022-03-15] MEDS: OXYCODONE 5 MG TABLET PO (09:05)
[2022-03-15] MEDS: ACETAMINOPHEN 325 MG TABLET 650 MG PO (09:06)
[2022-03-15] MEDS: RIVAROXABAN 10 MG TABLET PO (09:06)
[2022-03-15] MEDS: QUETIAPINE 25 MG TABLET PO (09:06)
[2022-03-15] MEDS: CYANOCOBALAMIN (VITAMIN B-12) 500 MCG TABLET 1000 MCG PO (09:06)
[2022-03-15] MEDS: SENNOSIDES 1 TAB TABLET 2 TAB PO (09:06)
[2022-03-15] MEDS: NYSTATIN POWDER 1 APPLIC TOPICAL (09:06)
[2022-03-15] MEDS: SERTRALINE 50 MG TABLET PO (09:07)
--- NOTE | 2022-03-15 09:23 | PC.SOCIAL ---
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
--- NOTE | 2022-03-15 09:46 | PM.DS1 ---
DS: Providers Provider Date Seen: 03/15/22 Date of admission: 03/12/22 10:45 Primary care physician: Not a Local Provider Admitting Clinician: Franc Sandoval MD Attending Physician on discharge: Franc Sandoval MD Date of Discharge: 03/15/22 DS: Diagnosis Discharge Diagnosis (1) Status post-operative repair of closed fracture of right hip: Status: Acute Problem details: POD 2 right femur IM nail for intertrochanteric fracture (2) Delirium due to another medical condition: Status: Acute Problem details: Appears to have a hypoactive delirium. Goal be to get her to be able to eat and drink, provide her own hydration and nutrition. Management of pain medications to avoid over or under dosing opioids (3) Lewy body dementia: Status: Acute Problem details: Delirium with dementia postop (4) Frequent falls: Status: Acute Problem details: High risk for falls. (5) Fracture, intertrochanteric, right femur: Status: Acute (6) Traumatic hematoma of forehead: Status: Acute Problem details: No intracranial injury DS: Summary Hospital Course Hospital Course: 71-year-old female with severe dementia and frequent falls admitted to the hospital after fall at home with hip pain. She was found to have an intertrochanteric hip fracture. She was taken to the operating room by Dr. Guillory where she had ORIF. Procedure was uncomplicated. Postoperatively she did well except for some postoperative delirium. She did tolerate nursing cares including Lux transfer and being fed. Status at Discharge Overall status at discharge: patient is progressing back to baseline Time Spent with Patient Time attestation: Total time spent providing and/or coordinating discharge services: Time spent: Greater than 30 minutes Exam Narrative: Exam Narrative: She is alert. She is in no distress at this time. She is observed to be agitated during transfer. Breathing is unlabored. No significant edema. Const: Vital Signs, click to edit/add: Vital Signs - 24 hr 03/14/22 11:00 03/14/22 15:00 03/14/22 15:00 Temperature 98.4 F 98.4 F Pulse Rate [Left A pical] 74 76 Respiratory Rate 16 16 16 Blood Pressure [Ri ght Arm] 136/86 Pulse Oximetry 97 97 Oxygen Delivery Me thod Room Air Room Air Oxygen Flow Rate 0 0 03/14/22 19:00 03/14/22 22:36 03/14/22 23:00 Temperature 98.5 F 98.3 F Pulse Rate [Left A pical] 87 76 73 Respiratory Rate 16 16 16 Blood Pressure [Ri ght Arm] 135/86 109/71 Pulse Oximetry 100 98 Oxygen Delivery Me thod Room Air Room Air Oxygen Flow Rate 03/15/22 03:00 Temperature 98.5 F Pulse Rate [Left A pical] 75 Respiratory Rate 16 Blood Pressure [Ri t Arm] 117/89 Pulse Oximetry 97 Oxygen Delivery Me thod Room Air Oxygen Flow Rate Documenting provider has reviewed patient's vital signs: yes DS: Data Data Completed and Pending Labs on day of discharge: Labs from last 24 hours 03/15/22 03/15/22 08:36 08:36 WBC 7.42 RBC 3.15 L Hgb 10.0 L Hct 30.8 L MCV 98 MCH 32 MCHC 33 Plt Count 164 Sodium 139 Potassium 3.5 L BUN 19 Creatinine 0.4 L Estimated Creat Clear 44.39 Estimated GFR 105 Discharge Plan Discharge Disposition: [facility] Date of Admission: 03/12/22 10:45 Attending Provider on Discharge: Franc Sandoval Primary Care Provider: Provider,Not a Local Anticipated Discharge Date/Time: 03/15/22 10:04 Discharge Medications: New quetiapine 25 mg Tablet 25 mg PO BID Qty: 60 0RF sennosides-docusate sodium [Senna-S] 8.6-50 mg tablet 1 - 4 tab-cap PO BID PRN (Reason: constipation) Qty: 60 0RF Rx Instructions: Hold medication if experiencing loose stools. acetaminophen 500 mg capsule 500 - 1,000 mg PO Q6H MDD 4000mg PRNQty: 100 0RF oxycodone 5 mg tablet 2.5 - 5 mg PO Q4-6H MDD 6 PRN (Reason: pain) Qty: 30 0RF Rx Instructions: Take as needed for postop pain: 2.5mg mild pain, 5mg moderate-severe pain; wean as tolerated. rivaroxaban 10 mg tablet 10 mg PO DAILY Qty: 27 0RF Rx Instructions: Medication for deep vein clot prevention post surgery. Complete this medication before starting Aspirin. Continued divalproex [Depakote Sprinkles] 125 mg capsule, delayed rel sprinkle 250 - 500 mg PO TID Label Comments: 250 mg po AM, 500 mg po noon, 250 mg po PM quetiapine 50 mg tablet 25 - 50 mg PO TID Label Comments: 0.5 tab QAM, 1 tab midday and PM (3 doses daily 25-50-50 mg) AND Give 1 tablet (50mg) PRN daily for agitation nystatin [Nystop] 100,000 unit/gram powder 1 applic topical Q8H PRN sertraline 50 mg tablet 50 mg PO DAILY Label Comments: 50mg daily, also 50mg PRN cyanocobalamin (vitamin B-12) [Vitamin B-12] 1,000 mcg tablet 1,000 mcg PO DAILY melatonin 5 mg PO HS Discontinued sennosides [senna] 8.6 mg tablet 8.6 mg PO BID PRN Label Comments: 1 tab po bid and 1 tab po bid prn constipation hydrocodone-acetaminophen 5-325 mg tablet 0.5 tab PO TID Label Comments: TAKE ONE-HALF (1/2) TABLET BY MOUTH THREE TIMES DAILY;TAKE ONE-HALF (1/2) TABLET BY MOUTH EVERY 4 HOURS NEEDED FOR PAIN acetaminophen 500 mg tablet 1,000 mg PO BID Label Comments: 1000 mg po BID senna 8.6 mg capsule 8.6 mg PO BID Discharge Orders: Discharge Order (Routine); Ordered 03/15/22 Ordered By: Souleymane Velasco Activity Level: Activity as Tolerated, Up with assist, Weight Bearing as Tolerated and Use Walker Discharge Diet: Regular Follow Up Appointments: Provider,Not a Local [Primary Care Provider] - Discharge Comments: Wound: ?Likely best to keep the surgical dressings in place to prevent patient from picking at the wounds as long as the bandages are of good integrity. ?No immersing wound in water; showering okay; light scrub with your hand and body soap, rinse, dab dry ?Sutures are under the skin, will dissolve; allow surgical glue to come off naturally; do not scrub the wound or apply ointments/lotions ?Call our office with any redness that streaks, excessive drainage from the wound, or wound gapping. Ice/Elevate: ?Ice as needed for swelling and discomfort (cryocuff or ice pack) FREDRICK socks: ?Wear for 1 month, remove for 1 hour 3 times per day ?These are frustrating to take on/off, but are important for blood clot prevention for 1 month after surgery Blood Clot Prevention (DVT): ?Medication: Rivaroxaban for 1 month Dental: ?No elective dental work for 6 months post-op. If there is an urgent/emergent dental need, contact our office for an antibiotic prescription. Smoking/Alcohol: ?Do not smoke; do no drink alcohol especially when taking postoperative oral narcotic medication Seek Care from you Primary Care Provider if you experience the following issues in the postoperative phase and beyond: ?Bacterial infections such as: pneumonia, bacterial skin infection (cellulitis), UTI, high fever, chills unrelated to the operative body part - call your primary care physician urgently for treatment in hopes to protect your health and the metal implant. Referrals: ?PT, OT at [facility]- evaluate and treat Follow up: ?Ortho surgeon follow-up in 6 weeks; repeat radiographs AP pelvis, cross-table lateral operative hip ?PA-C visit in 1 week, unless it is too difficult for patient to go to outpatient clinic, we can perform a patient visit over the phone with [facility] staff *If there are any acute concerns regarding your surgery, please call our orthopedic clinic ([phone])
[2022-03-15 11:00] VITALS: BP 143/70; PULSE 83; RESP 16; TEMP 36.9
--- NOTE | 2022-03-15 11:43 | PC.NURSE ---
PATIENT DISCHARGED TO [address] [place] [address], NURSE TO NURSE REPORT GIVEN TO DAVID AT [facility] AND ALL QUESTIONS ANSWERED, PATIENT AT BEDSIDE AND SUPPORTIVE, IV REMOVED, ALL BELONGINGS SENT WITH , DRESSING CDI TO RIGHT HIP, TOOK MEDICATION CRUSHED AND PUDDING AND PATIENT TOLERATED WELL, UP TO CHAIR VIA CEILING LIFT, PATIENT TOLERATED FAIRLY, PATIENT DOES HOLLER WITH MOVEMENT BUT QUICKLY STOPS ONCE BACK SITTING OR LYING, INCONTINENT OF BOWEL AND BLADDER, PATIENT LEFT VIA EMS AROUND 1100.
--- NOTE | 2022-03-15 15:20 | PM.DS1 ---
DS: Providers Provider Date Seen: 03/15/22 Date of admission: 03/12/22 10:45 Primary care physician: Not a Local Provider Admitting Clinician: Franc Sandoval MD Consults: 03/12/22 21:15 Consult to Occupational Therapy [CONS] Routine Comment: Reason(s) for OT Consult:: Evaluate and Treat Any Restrictions?:: See Comment Comment: evaluate and treat Consult to Physical Therapy [CONS] Routine Comment: Reason(s) for PT Consult:: Evaluate and Treat Any Restrictions?:: Wt Bearing as Tolerated Comment: Weightbear as tolerates right lower extremity Consult to Animal Care Service Worker [CONS] Routine Comment: Reason for Consult:: Discharge Planning Needs Attending Physician on discharge: Franc Sandoval MD Date of Discharge: 03/15/22 DS: Diagnosis Discharge Diagnosis (1) Fracture, intertrochanteric, right femur: Status: Acute (2) Delirium due to another medical condition: Status: Acute Problem details: Appears to have a hypoactive delirium. Goal be to get her to be able to eat and drink, provide her own hydration and nutrition. Management of pain medications to avoid over or under dosing opioids (3) Lewy body dementia: Status: Acute Problem details: Delirium with dementia postop (4) Status post-operative repair of closed fracture of right hip: Status: Acute Problem details: POD 3 right femur IM nail for intertrochanteric fracture DS: Summary Hospital Course Hospital Course: The patient has a history of right proximal femoral intertrochanteric fracture. After appropriate preoperative evaluation and consultation, the patient underwent right femur intramedullary nail. Postoperatively given anticoagulation for deep vein thrombosis prophylaxis (rivaroxaban). Postoperative complications included delirium from significantly Lewy body dementia. She received extensive care, but demonstrated progression regarding eating and drinking. It was felt that she was ready to be discharged to SNF for further care and assistance. She was discharged with appropriate pain medication and anticoagulation medicine. Status at Discharge Cognitive/behavioral status at discharge: Lewy body dementia, improving delirium postoperatively Functional status at discharge: bed bound (Patient is need of Lux lift for transfers) Overall status at discharge: patient is progressing back to baseline (This will likely take time as patient is reluctant to experience any discomfort on the right lower leg) Time Spent with Patient Time attestation: Total time spent providing and/or coordinating discharge services: Time spent: Less than 30 minutes Exam Narrative: Exam Narrative: -Patient appears comfortable in recliner watching TV; no apparent acute distress -responds to verbal stimulation, but her verbal response is incoherent -Operative hip/thigh mild-moderately swollen; soft tissues supple; no obvious erythema. Ecchymosis minimal. Warmth appropriate -Surgical dressings are clean, dry, intact; no obvious drainage, no erythematous streaking peripheral to the bandage -Bilateral calves soft and supple; no significant swelling, edema, tenderness, erythema, discoloration, warmth, or palpable cords -2+ DP/PT pulses, intact dermatomes and myotomes distally Const: Vital Signs, click to edit/add: Vital Signs - 24 hr 03/14/22 19:00 03/14/22 22:36 03/14/22 23:00 Temperature 98.5 F 98.3 F Pulse Rate Pulse Rate [Left A pical] 87 76 73 Respiratory Rate 16 16 16 Blood Pressure Blood Pressure [Ri ght Arm] 135/86 109/71 Pulse Oximetry 100 98 Oxygen Delivery Me thod Room Air Room Air Oxygen Flow Rate 03/15/22 03:00 03/15/22 07:00 03/15/22 11:00 Temperature 98.5 F 98.5 F 98.5 F Pulse Rate 83 Pulse Rate [Left A pical] 75 83 Respiratory Rate 16 16 16 Blood Pressure 143/70 H Blood Pressure [Ri ght Arm] 117/89 143/70 H Pulse Oximetry 97 100 Oxygen Delivery Me thod Room Air Room Air Oxygen Flow Rate 0 DS: Data Data Completed and Pending Labs on day of discharge: Labs from last 24 hours 03/15/22 03/15/22 08:36 08:36 WBC 7.42 RBC 3.15 L Hgb 10.0 L Hct 30.8 L MCV 98 MCH 32 MCHC 33 Plt Count 164 Sodium 139 Potassium 3.5 L BUN 19 Creatinine 0.4 L Estimated Creat Clear 44.39 Estimated GFR 105 Discharge Plan Discharge Disposition: [facility] Date of Admission: 03/12/22 10:45 Attending Provider on Discharge: Franc Sandoval Primary Care Provider: Provider,Not a Local Anticipated Discharge Date/Time: 03/15/22 10:04 Discharge Medications: New quetiapine 25 mg Tablet 25 mg PO BID Qty: 60 0RF sennosides-docusate sodium [Senna-S] 8.6-50 mg tablet 1 - 4 tab-cap PO BID PRN (Reason: constipation) Qty: 60 0RF Rx Instructions: Hold medication if experiencing loose stools. acetaminophen 500 mg capsule 500 - 1,000 mg PO Q6H MDD 4000mg PRNQty: 100 0RF oxycodone 5 mg tablet 2.5 - 5 mg PO Q4-6H MDD 6 PRN (Reason: pain) Qty: 30 0RF Rx Instructions: Take as needed for postop pain: 2.5mg mild pain, 5mg moderate-severe pain; wean as tolerated. rivaroxaban 10 mg tablet 10 mg PO DAILY Qty: 27 0RF Rx Instructions: Medication for deep vein clot prevention post surgery. Complete this medication before starting Aspirin. Continued divalproex [Depakote Sprinkles] 125 mg capsule, delayed rel sprinkle 250 - 500 mg PO TID Label Comments: 250 mg po AM, 500 mg po noon, 250 mg po PM quetiapine 50 mg tablet 25 - 50 mg PO TID Label Comments: 0.5 tab QAM, 1 tab midday and PM (3 doses daily 25-50-50 mg) AND Give 1 tablet (50mg) PRN daily for agitation nystatin [Nystop] 100,000 unit/gram powder 1 applic topical Q8H PRN sertraline 50 mg tablet 50 mg PO DAILY Label Comments: 50mg daily, also 50mg PRN cyanocobalamin (vitamin B-12) [Vitamin B-12] 1,000 mcg tablet 1,000 mcg PO DAILY melatonin 5 mg PO HS Discontinued sennosides [senna] 8.6 mg tablet 8.6 mg PO BID PRN Label Comments: 1 tab po bid and 1 tab po bid prn constipation hydrocodone-acetaminophen 5-325 mg tablet 0.5 tab PO TID Label Comments: TAKE ONE-HALF (1/2) TABLET BY MOUTH THREE TIMES DAILY;TAKE ONE-HALF (1/2) TABLET BY MOUTH EVERY 4 HOURS NEEDED FOR PAIN acetaminophen 500 mg tablet 1,000 mg PO BID Label Comments: 1000 mg po BID senna 8.6 mg capsule 8.6 mg PO BID Discharge Orders: Discharge Order (Routine); Ordered 03/15/22 Ordered By: Souleymane Velasco Activity Level: Activity as Tolerated, Up with assist, Weight Bearing as Tolerated and Use Walker Discharge Diet: Regular Follow Up Appointments: Provider,Not a Local [Primary Care Provider] - Discharge Comments: Wound: ?Likely best to keep the surgical dressings in place to prevent patient from picking at the wounds as long as the bandages are of good integrity. ?No immersing wound in water; showering okay; light scrub with your hand and body soap, rinse, dab dry ?Sutures are under the skin, will dissolve; allow surgical glue to come off naturally; do not scrub the wound or apply ointments/lotions ?Call our office with any redness that streaks, excessive drainage from the wound, or wound gapping. Ice/Elevate: ?Ice as needed for swelling and discomfort (cryocuff or ice pack) FREDRICK socks: ?Wear for 1 month, remove for 1 hour 3 times per day ?These are frustrating to take on/off, but are important for blood clot prevention for 1 month after surgery Blood Clot Prevention (DVT): ?Medication: Rivaroxaban for 1 month Dental: ?No elective dental work for 6 months post-op. If there is an urgent/emergent dental need, contact our office for an antibiotic prescription. Smoking/Alcohol: ?Do not smoke; do no drink alcohol especially when taking postoperative oral narcotic medication Seek Care from you Primary Care Provider if you experience the following issues in the postoperative phase and beyond: ?Bacterial infections such as: pneumonia, bacterial skin infection (cellulitis), UTI, high fever, chills unrelated to the operative body part - call your primary care physician urgently for treatment in hopes to protect your health and the metal implant. Referrals: ?PT, OT at [facility]- evaluate and treat Follow up: ?Ortho surgeon follow-up in 6 weeks; repeat radiographs AP pelvis, cross-table lateral operative hip ?PA-C visit in 1 week, unless it is too difficult for patient to go to outpatient clinic, we can perform a patient visit over the phone with SNF staff *If there are any acute concerns regarding your surgery, please call our orthopedic clinic ([phone])
== END 2022-03-15 11:00 | DRG 481 ==
LOC: ED 08:40 → MEDSURG 10:44
PROVIDERS: Orthopaedic Surgery; Admitting Provider Family Medicine; Emergency Provider Family Medicine; Visit Provider Family Medicine
PROC: 0QS606Z Reposition Right Upper Femur with Intramedullary Internal Fixation Device, Open Approach (ICD-10-PCS; CPT 27245; principal; 2022-03-12 18:15)
DX: S72.141A Displaced intertrochanteric fracture of right femur, initial encounter for closed fracture (principal); F05 Delirium due to known physiological condition; S00.83XA Contusion of other part of head, initial encounter; W19.XXXA Unspecified fall, initial encounter; Y92.099 Unspecified place in other non-institutional residence as the place of occurrence of the external cause; G31.83 Neurocognitive disorder with Lewy bodies; F02.80 Dementia in other diseases classified elsewhere, unspecified severity, without behavioral disturbance, psychotic disturbance, mood disturbance, and anxiety; F41.9 Anxiety disorder, unspecified; G35 Multiple sclerosis
CPT/HCPCS: 01200; 36415; 64450; 70450; 71045; 71260; 72125; 73521; 73552; 73560; 74177; 76000; 76942; 80053; 81001; 82565; 83605; 84132; 84295; 84484; 84520; 85025; 85027; 86140; 87086; 87631; 93005; 94761; 97161; 97165; 97530; 97535; 99100; 99140; 99284; 99285; A9270; C1713; J0690; J1170; J2060; J2250; J2270; J2370; J2405; J2704; J3010; J3490; J7120; Q9967

== ENCOUNTER 2022-03-15 10:55 | Outpatient (CLI) | payer MEDICARE, OTHER, SELFPAY | END 2022-03-15 10:56 | disposition home or self-care (01) | LOC: AMB 05-10 21:27 | PROVIDERS: Visit Provider Family Medicine | DX: Z99.3 Dependence on wheelchair (principal) | CPT/HCPCS: A0425; A0428 ==